=== PATIENT | female | born 1975 | race Caucasian/White ===

== ENCOUNTER 2016-09-08 09:55 | Emergency (ER) | payer MEDICAID ==
--- NOTE | 2016-09-08 09:57 | EDM.PDOC ---
[id number] 4d IN BY AMBULANCE Time Seen by Provider: 09/08/16 09:56 Source of Information: Reports: Patient, EMS, Old records, RN, RN notes reviewed History Limitations: Reports: No limitations - History of Present Illness INITIAL COMMENTS - FREE TEXT/NARRATIVE: Arrives by ambulance from home with c/o chest pain x2 days. Pt reports CP, but points to indicate the location of the epigastric abdomen. The pain is described as radiating up the midline chest with a burning and spasm sensation. Denies SOB, cough, N/V. Onset: unknown/unsure Duration: Day(s): (2) Location: Reports: chest, abdomen Quality: Reports: Burning Severity: severe Improves with: Reports: None Worsens with: Reports: None Context: Denies: Activity, Exercise, Lifting, Sick contact, Trauma Associated Symptoms: Reports: no other symptoms Mid-Sternal Chest Pain Score (Numeric/FACES): 9 - Related Data Allergies Allergy/AdvReac Type Severity Reaction Status Date / Time Penicillins Allergy Mild Rash Verified 09/13/16 22:12 acetaminophen Allergy Liver Verified 09/13/16 22:12 Problems amoxicillin trihydrate Allergy Itching Verified 09/13/16 22:12 [From Augmentin] aspirin Allergy Nausea Verified 09/13/16 22:12 azithromycin [From Zithromax] Allergy Nausea and Verified 09/13/16 22:12 Vomiting cefdinir [Cefdinir] Allergy Hives Verified 09/13/16 22:12 erythromycin base Allergy Swelling Verified 09/13/16 22:12 latex Allergy Blisters Verified 09/13/16 22:12 penicillin G procaine Allergy Hives Verified 09/13/16 22:12 Sulfa (Sulfonamide Allergy Nausea and Verified 09/13/16 22:12 Antibiotics) Vomiting valdecoxib [From Bextra] Allergy Stomach Verified 09/13/16 22:12 Upset Home Meds: Home Meds Albuterol [Proair HFA] 2 puff INH Q4HR PRN 09/29/13 [History] Gabapentin [Neurontin] 300 mg PO QID 12/28/15 [History] Melatonin 5 - 10 mg PO BEDTIME 02/19/16 [History] Docusate Sodium 100 mg PO 09/13/16 [History] traMADol [Ultram] 50 mg PO DAILY 09/13/16 [History] Past Medical History - Past Health History Medical/Surgical History: Denies Medical/Surgical History HEENT History: Reports: Otitis media, Sinusitis Cardiovascular History: Reports: Other (see below) Other Cardiovascular History: edema Respiratory History: Reports: Other (see below) Other Respiratory History: Environmental allergies Gastrointestinal History: Reports: Diverticulosis, Irritable bowel syndrome Genitourinary History: Reports: UTI, recurrent Other Genitourinary History: Innersticial cystitis [employer] History: Reports: Endometriosis, Fibroids, Polycystic Ovaries, Musculoskeletal History: Reports: Arthritis, Back pain, chronic, Fracture, Neck pain, chronic, Osteoarthritis Other Musculoskeletal History: Fx. wrist and feet. Neurological History: Reports: Concussion, Migraines, Seizure, Vertigo Psychiatric History: Reports: Anxiety, PTSD Endocrine/Metabolic History: Reports: Diabetes, gestational Hematologic History: Reports: Other (see below) Other Hematologic History: Clotting problem at time of surgery Dermatologic History: Reports: Eczema, Other (see below) Other Dermatologic History: MRSA. boils - Infectious Disease History Infectious Disease History: Reports: Chicken pox, MRSA - Past Surgical History Cardiovascular Surgical History: Reports: None Respiratory Surgical History: Reports: None GI Surgical History: Reports: Cholecystectomy, Colonoscopy, EGD Female Surgical History: Reports: Hysterectomy, Salpingo-oophorectomy Endocrine Surgical History: Reports: None Musculoskeletal Surgical History: Reports: Other (see below) Other Musculoskeletal Surgeries/Procedures:: cyst removed from right heel and top of foot, inside of left heel Social & Family History - Family History Family Medical History: Noncontributory - Tobacco Use Smoking Status *Q: Current Every Day Smoker Years of Tobacco use: 26 Packs/Tins Daily: 0.5 Used Tobacco, but Quit: No Month Tobacco Last Used: december Second Hand Smoke Exposure: Yes - Caffeine Use Caffeine Use: Reports: Coffee, Energy drinks, Soda, Tea - Alcohol Use Days Per Week of Alcohol Use: 1 Number of Drinks Per Day: 2 Total Drinks Per Week: 2 - Recreational Drug Use Recreational Drug Use: No Drug Use in Last 12 Months: No - Sexual History Sexual History: Reports: None. Denies: Sexually active - Living Situation & Occupation Living situation: Reports: with family Occupation: employed ED ROS GENERAL - Review of Systems Review Of Systems: ROS reveals no pertinent complaints other than HPI. ED EXAM, GENERAL - Physical Exam Exam: See Below Exam Limited By: No limitations General Appearance: alert, WD/WN, no apparent distress, anxious, obese Eye Exam: bilateral eye: normal inspection Ears: normal external exam, normal canal, hearing grossly normal, normal TMs Nose: normal inspection, normal mucosa, no blood Throat/Mouth: Normal inspection, Normal lips, Normal teeth, Normal gums, Normal oropharynx, Normal voice, No airway compromise Head: atraumatic, normocephalic Neck: normal inspection, supple, non-tender, full range of motion Respiratory/Chest: no respiratory distress, lungs clear, normal breath sounds, no accessory muscle use, chest non-tender Cardiovascular: normal peripheral pulses, regular rate, rhythm, no edema, no gallop, no JVD, no murmur, no rub GI/Abdominal: normal bowel sounds, soft, no distention, no abnormal bruit, tender (epigastric region). No: guarding, rigid, rebound (Female) Exam: Deferred Rectal (Female) Exam: Deferred Back Exam: normal inspection, full range of motion, NT Extremities: normal inspection, normal range of motion, non-tender, normal capillary refill, no pedal edema Neurological: alert, oriented, CN II-XII intact, normal cognition, normal gait, no motor/sensory deficits Psychiatric: anxious, tearful Skin Exam: Warm, Dry, Intact, Normal color, No rash, Other (hirsute face) EKG INTERPRETATION EKG Date: 09/08/16 Time: 11:06 Rhythm: other (sinus bradycardia) Rate (beats/min): 56 [place]: normal P-wave: present QRS: normal ST-T: normal QT: normal Comparison: NA - no prior EKG Course - Vital Signs Last Recorded V/S: Last Vital Signs Temp 36.8 C 09/08/16 11:25 Pulse 82 09/08/16 11:25 Resp 16 09/08/16 11:25 BP 113/64 09/08/16 11:25 Pulse Ox 99 09/08/16 11:25 - Orders/Labs/Meds Labs: Laboratory Tests 09/08/16 09/08/16 09/08/16 Range/Units 10:12 10:12 10:12 WBC 8.4 (5.0-10.0) 10^3/uL RBC 4.55 (4.2-5.4) 10^6/uL Hgb 12.7 (12.0-16.0) g/dL Hct 39.4 (37.0-47.0) % MCV 86.6 (80-100) fL MCH 27.9 (27.0-34.0) pg MCHC 32.2 L (33.0-35.0) g/dL Plt Count 225 (150-450) 10^3/uL Neut % (Auto) 58.8 (42.2-75.2) % Lymph % (Auto) 29.9 (20.5-50.1) % Kings % (Auto) 7.2 (2-8) % Eos % (Auto) 3.9 H (1.0-3.0) % Baso % (Auto) 0.2 (0.0-1.0) % D-Dimer, Quantitative < 100 (0-400) ng/mL Sodium 141 (135-145) mmol/L Potassium 4.2 (3.6-5.0) mmol/L Chloride 111 (101-111) mmol/L Carbon Dioxide 23.0 (21.0-31.0) mmol/L Anion Gap 11.2 BUN 15 (7-18) mg/dL Creatinine 0.8 (0.6-1.3) mg/dL Est Cr Clr Drug Dosing 89.26 mL/min Estimated GFR (MDRD) > 60 BUN/Creatinine Ratio 18.75 Glucose 95 (74-105) mg/dL Calcium 9.1 (8.4-10.2) mg/dl Total Bilirubin 0.2 (0.2-1.0) mg/dL AST 15 (10-42) IU/L ALT 12 (10-60) IU/L Alkaline Phosphatase 71 (42-121) IU/L Troponin I < 0.02 (0.00-0.02) ng/ml Total Protein 6.6 L (6.7-8.2) g/dl Albumin 3.7 (3.2-5.5) g/dl Globulin 2.9 Albumin/Globulin Ratio 1.28 Amylase 92 (28-100) U/L Lipase 35 (22-51) U/L Urine Color (YELLOW) Urine Appearance (CLEAR) Urine pH (5.0-9.0) Ur Specific [place] (1.005-1.030) Urine Protein (NEGATIVE) Urine Glucose (UA) (NEGATIVE) Urine Ketones (NEGATIVE) Urine Occult Blood (NEGATIVE) Urine Nitrite (NEGATIVE) Urine Bilirubin (NEGATIVE) Urine Urobilinogen (0.2-1.0) mg/dL Ur Leukocyte Esterase (NEGATIVE) Urine RBC /HPF Urine WBC (0-5/HPF) /HPF Ur Epithelial Cells /HPF Urine Bacteria (0-FEW/HPF) /HPF Urine HCG, Qual Urine Opiates Screen (NEGATIVE) Ur Oxycodone Screen (NEGATIVE) Urine Methadone Screen (NEGATIVE) Ur Barbiturates Screen (NEGATIVE) U Tricyclic Antidepress (NEGATIVE) Ur Phencyclidine Scrn (NEGATIVE) Ur Amphetamine Screen (NEGATIVE) U Methamphetamines Scrn (NEGATIVE) Urine MDMA Screen (NEGATIVE) U Benzodiazepines Scrn (NEGATIVE) Urine Cocaine Screen (NEGATIVE) U Marijuana (THC) Screen (NEGATIVE) 09/08/16 09/08/16 09/08/16 Range/Units 10:42 10:42 10:42 WBC (5.0-10.0) 10^3/uL RBC (4.2-5.4) 10^6/uL Hgb (12.0-16.0) g/dL Hct (37.0-47.0) % MCV (80-100) fL MCH (27.0-34.0) pg MCHC (33.0-35.0) g/dL Plt Count (150-450) 10^3/uL Neut % (Auto) (42.2-75.2) % Lymph % (Auto) (20.5-50.1) % Kings % (Auto) (2-8) % Eos % (Auto) (1.0-3.0) % Baso % (Auto) (0.0-1.0) % D-Dimer, Quantitative (0-400) ng/mL Sodium (135-145) mmol/L Potassium (3.6-5.0) mmol/L Chloride (101-111) mmol/L Carbon Dioxide (21.0-31.0) mmol/L Anion Gap BUN (7-18) mg/dL Creatinine (0.6-1.3) mg/dL Est Cr Clr Drug Dosing mL/min Estimated GFR (MDRD) BUN/Creatinine Ratio Glucose (74-105) mg/dL Calcium (8.4-10.2) mg/dl Total Bilirubin (0.2-1.0) mg/dL AST (10-42) IU/L ALT (10-60) IU/L Alkaline Phosphatase (42-121) IU/L Troponin I (0.00-0.02) ng/ml Total Protein (6.7-8.2) g/dl Albumin (3.2-5.5) g/dl Globulin Albumin/Globulin Ratio Amylase (28-100) U/L Lipase (22-51) U/L Urine Color Yellow (YELLOW) Urine Appearance Clear (CLEAR) Urine pH 7.0 (5.0-9.0) Ur Specific [place] 1.020 (1.005-1.030) Urine Protein 30 H (NEGATIVE) Urine Glucose (UA) Negative (NEGATIVE) Urine Ketones Negative (NEGATIVE) Urine Occult Blood Negative (NEGATIVE) Urine Nitrite Negative (NEGATIVE) Urine Bilirubin Negative (NEGATIVE) Urine Urobilinogen 0.2 (0.2-1.0) mg/dL Ur Leukocyte Esterase Negative (NEGATIVE) Urine RBC 0-5 /HPF Urine WBC 0-5 (0-5/HPF) /HPF Ur Epithelial Cells Few /HPF Urine Bacteria Few (0-FEW/HPF) /HPF Urine HCG, Qual Negative Urine Opiates Screen Negative (NEGATIVE) Ur Oxycodone Screen Negative (NEGATIVE) Urine Methadone Screen Negative (NEGATIVE) Ur Barbiturates Screen Negative (NEGATIVE) U Tricyclic Antidepress Negative (NEGATIVE) Ur Phencyclidine Scrn Negative (NEGATIVE) Ur Amphetamine Screen Negative (NEGATIVE) U Methamphetamines Scrn Negative (NEGATIVE) Urine MDMA Screen Negative (NEGATIVE) U Benzodiazepines Scrn Negative (NEGATIVE) Urine Cocaine Screen Negative (NEGATIVE) U Marijuana (THC) Screen Negative (NEGATIVE) Meds: Medications Discontinued Medications Generic Name Dose Route Start Last Admin Trade Name Freq PRN Reason Stop Dose Admin Hydromorphone HCl 1 mg 09/08/16 10:22 09/08/16 11:00 Dilaudid IVPUSH 09/08/16 10:23 1 mg ONETIME ONE Administration Sodium Chloride 1,000 mls @ 999 mls/hr 09/08/16 10:22 09/08/16 10:55 Normal Saline IV 09/08/16 11:22 999 mls/hr .BOLUS ONE Administration Ondansetron HCl 4 mg 09/08/16 10:22 09/08/16 10:57 Zofran IV 09/08/16 10:23 4 mg ONETIME ONE Administration Pantoprazole Sodium 80 mg 09/08/16 10:22 09/08/16 10:58 Protonix Iv IVPUSH 09/08/16 10:23 80 mg .BOLUS ONE Administration Sodium Chloride 10 ml 09/08/16 10:01 09/08/16 10:56 Saline Flush FLUSH 10 ml ASDIRECTED PRN Administration Keep Vein Open Departure - Departure Time of Disposition: 11:26 Disposition: Home, Self-Care 01 Condition: fair Clinical Impression: Esophageal spasm Abdominal pain Qualifiers: Abdominal location: epigastric Qualified Code(s): R10.13 - Epigastric pain Instructions: Esophageal Spasm, Peptic Ulcer, [id number], Food Choices for Peptic Ulcer Disease Referrals: Karen Healy MD [Primary Care Provider] - Forms: ED Department Discharge Additional Instructions: Rx: Zofran 4mg Rx: Omeprazole 20mg Rx: Carafate 1g Follow up in clinic with your doctor for recheck and referral to GI specialist.
[2016-09-08] MEDS ORDERED: Sodium Chloride 0.9% 10 ML Syringe FLUSH PRN (10:01)
[2016-09-08] MEDS ORDERED: Pantoprazole 40 MG Vial IVPUSH ONE (10:22)
[2016-09-08] MEDS ORDERED: Sodium Chloride 0.9% 1,000 ML IV ONE (10:22)
[2016-09-08] MEDS ORDERED: Ondansetron 4 MG/2 ML SDV IV ONE (10:22)
[2016-09-08] MEDS ORDERED: HYDROmorphone 1 MG/ML Syringe IVPUSH ONE (10:22)
[2016-09-08 11:08] LABS: CHLORIDE,CL 111 mmol/L (101-111); SODIUM,NA 141 mmol/L (135-145)
--- NOTE | 2016-09-08 11:08 | CR ---
CLINICAL HISTORY: 40-year-old with chest pain. INTERPRETATION: AP portable chest film (external cardiac sonographer leads) unremarkable and unchanged e xcept for technique when compared directly to 03 June 2016 exam. Normal cardiac silhouette without alveolar edema or dependent pleural effusion. No new lung mass, hilar lymphadenopathy or focal lobar pneumonia. No atelectasis/collapse. No pneumothorax. CONCLUSION: No acute new cardiopulmonary abnormality since 03 June 2016 exam.
[2016-09-08 11:16] VITALS: BP 113/64
--- NOTE | 2016-09-12 12:11 | EKG ---
09/08/2016 - LIS LANIER - TIME: 1106 hours. I reviewed the EKG and agree with the machine's reading. [facility] /[id number]
== END 2016-09-08 11:35 | disposition home or self-care (01) ==
LOC: DL.ED 09:55
DX: K22.4 Dyskinesia of esophagus (principal); M19.90 Unspecified osteoarthritis, unspecified site; F41.9 Anxiety disorder, unspecified; F17.210 Nicotine dependence, cigarettes, uncomplicated; Z88.0 Allergy status to penicillin; Z88.6 Allergy status to analgesic agent; Z88.1 Allergy status to other antibiotic agents; Z91.040 Latex allergy status; Z88.2 Allergy status to sulfonamides; Z79.899 Other long term (current) drug therapy; Z87.440 Personal history of urinary (tract) infections; Z90.49 Acquired absence of other specified parts of digestive tract; Z90.710 Acquired absence of both cervix and uterus
CPT/HCPCS: 36415; 71010; 80053; 80305; 81001; 81025; 82150; 83690; 84484; 85025; 85379; 93005; 96361; 96374; 96375; 99285; C9113; J1170; J2405; J7030; J7050

== ENCOUNTER 2016-09-13 21:36 | Emergency (ER) | payer MEDICAID ==
--- NOTE | 2016-09-13 22:14 | EDM.PDOC ---
ED HPI GENERAL MEDICAL PROBLEM - General Chief Complaint: Gastrointestinal Problem Stated Complaint: STOMACH PAIN,IMPACTED BOWEL Time Seen by Provider: 09/13/16 22:13 Source of Information: Reports: Patient History Limitations: Reports: No limitations - History of Present Illness INITIAL COMMENTS - FREE TEXT/NARRATIVE: 40 yo white Female c/o recurrent stool impaction, last BM 6 days ago. Pt. does take Tramadol for pain. Onset: gradual Onset Date: 09/07/16 Onset Time: 12:00 Duration: Day(s):, Recurring Location: Reports: abdomen Quality: Reports: Pressure Severity: moderate Abdomen Pain Score (Numeric/FACES): 7 - Related Data Allergies Allergy/AdvReac Type Severity Reaction Status Date / Time Penicillins Allergy Mild Rash Verified 09/13/16 22:12 acetaminophen Allergy Liver Verified 09/13/16 22:12 Problems amoxicillin trihydrate Allergy Itching Verified 09/13/16 22:12 [From Augmentin] aspirin Allergy Nausea Verified 09/13/16 22:12 azithromycin [From Zithromax] Allergy Nausea and Verified 09/13/16 22:12 Vomiting cefdinir [Cefdinir] Allergy Hives Verified 09/13/16 22:12 erythromycin base Allergy Swelling Verified 09/13/16 22:12 latex Allergy Blisters Verified 09/13/16 22:12 penicillin G procaine Allergy Hives Verified 09/13/16 22:12 Sulfa (Sulfonamide Allergy Nausea and Verified 09/13/16 22:12 Antibiotics) Vomiting valdecoxib [From Bextra] Allergy Stomach Verified 09/13/16 22:12 Upset Home Meds: Home Meds Albuterol [Proair HFA] 2 puff INH Q4HR PRN 09/29/13 [History] Gabapentin [Neurontin] 300 mg PO QID 12/28/15 [History] Melatonin 5 - 10 mg PO BEDTIME 02/19/16 [History] Docusate Sodium 100 mg PO 09/13/16 [History] traMADol [Ultram] 50 mg PO DAILY 09/13/16 [History] Past Medical History - Past Health History Medical/Surgical History: Denies Medical/Surgical History HEENT History: Reports: Otitis media, Sinusitis Cardiovascular History: Reports: Other (see below) Other Cardiovascular History: edema Respiratory History: Reports: Other (see below) Other Respiratory History: Environmental allergies Gastrointestinal History: Reports: Diverticulosis, Irritable bowel syndrome Genitourinary History: Reports: UTI, recurrent Other Genitourinary History: Innersticial cystitis [employer] History: Reports: Endometriosis, Fibroids, Polycystic Ovaries, Musculoskeletal History: Reports: Arthritis, Back pain, chronic, Fracture, Neck pain, chronic, Osteoarthritis Other Musculoskeletal History: Fx. wrist and feet. Neurological History: Reports: Concussion, Migraines, Seizure, Vertigo Psychiatric History: Reports: Anxiety, PTSD Endocrine/Metabolic History: Reports: Diabetes, gestational Hematologic History: Reports: Other (see below) Other Hematologic History: Clotting problem at time of surgery Dermatologic History: Reports: Eczema, Other (see below) Other Dermatologic History: MRSA. boils - Infectious Disease History Infectious Disease History: Reports: Chicken pox, MRSA - Past Surgical History Cardiovascular Surgical History: Reports: None Respiratory Surgical History: Reports: None GI Surgical History: Reports: Cholecystectomy, Colonoscopy, EGD Female Surgical History: Reports: Hysterectomy, Salpingo-oophorectomy Endocrine Surgical History: Reports: None Musculoskeletal Surgical History: Reports: Other (see below) Other Musculoskeletal Surgeries/Procedures:: cyst removed from right heel and top of foot, inside of left heel Social & Family History - Family History Family Medical History: Noncontributory - Tobacco Use Smoking Status *Q: Current Every Day Smoker Years of Tobacco use: 26 Packs/Tins Daily: 0.5 Used Tobacco, but Quit: No Month Tobacco Last Used: december Second Hand Smoke Exposure: Yes - Caffeine Use Caffeine Use: Reports: Coffee, Energy drinks, Soda, Tea - Alcohol Use Days Per Week of Alcohol Use: 1 Number of Drinks Per Day: 2 Total Drinks Per Week: 2 - Recreational Drug Use Recreational Drug Use: No Drug Use in Last 12 Months: No - Sexual History Sexual History: Reports: None. Denies: Sexually active - Living Situation & Occupation Living situation: Reports: with family Occupation: employed ED ROS GENERAL - Review of Systems Review Of Systems: See Below Constitutional: Reports: no symptoms HEENT: Reports: No symptoms Respiratory: Reports: No Symptoms Cardiovascular: Reports: No symptoms Endocrine: Reports: no symptoms GI/Abdominal: Reports: Constipation (last BM 6 days ago) : Reports: no symptoms Musculoskeletal: Reports: no symptoms Skin: Reports: no symptoms Neurological: Reports: No Symptoms Psychiatric: Reports: No symptoms Hematologic/Lymphatic: Reports: no symptoms Immunologic: Reports: no symptoms ED EXAM, GENERAL - Physical Exam Exam: See Below Exam Limited By: No limitations General Appearance: alert, no apparent distress, obese Eye Exam: bilateral eye: PERRL Ears: normal external exam Nose: normal inspection Throat/Mouth: Normal inspection Head: atraumatic Neck: normal inspection Respiratory/Chest: no respiratory distress, lungs clear Cardiovascular: normal peripheral pulses, regular rate, rhythm GI/Abdominal: soft, no organomegaly, abnormal bowel sounds: (decreased) Back Exam: normal inspection, full range of motion Extremities: normal inspection, normal range of motion Neurological: alert, oriented, CN II-XII intact, normal cognition Psychiatric: normal affect Skin Exam: Warm, No rash Lymphatic: no adenopathy Course - Vital Signs Last Recorded V/S: Last Vital Signs Temp 36.9 C 09/13/16 22:15 Pulse 90 09/13/16 22:15 Resp 18 09/13/16 22:15 BP 131/65 09/13/16 22:15 Pulse Ox 99 09/13/16 22:15 - Orders/Labs/Meds Orders: Active Orders 24 hr Category Date Time Status Abdomen 2V AP Flat Upright [CR] Urgent Exams 09/13/16 22:22 Ordered Departure - Departure Time of Disposition: 22:49 Disposition: Home, Self-Care 01 Condition: good Clinical Impression: Constipation Instructions: Constipation, Adult, [id number] Forms: ED Department Discharge Additional Instructions: Increase intake of Water Stop all Breads, Dairy and Meats ( All are Constipating) Tonight: 1) Give yourself a FLEETS Enema and hold for at least 15 mins. 2) Drink one glass of Magnesium Citrate and then 3 glasses of water ( If no BM after 30mins. go to # 3) 3) Take one-tablespoon of Fischer Oil and then 4 glasses of water 4) Try taking MOVANTIK which is indicated for Opioid induced constipation - Script given for # 25 ( take 1 each AM) F/U w/ your Doctor and possible Gastroenterology evaluation - My Orders Last 24 Hours: My Active Orders 09/13/16 22:22 Abdomen 2V AP Flat Upright [CR] Urgent - Assessment/Plan Last 24 Hours: My Active Orders 09/13/16 22:22 Abdomen 2V AP Flat Upright [CR] Urgent
[2016-09-13 22:25] VITALS: BP 131/65
== END 2016-09-13 23:05 | disposition home or self-care (01) ==
LOC: DL.ED 21:36
DX: K59.00 Constipation, unspecified (principal); M19.90 Unspecified osteoarthritis, unspecified site; F41.9 Anxiety disorder, unspecified; F17.210 Nicotine dependence, cigarettes, uncomplicated; Z88.1 Allergy status to other antibiotic agents; Z91.040 Latex allergy status; Z88.0 Allergy status to penicillin; Z88.2 Allergy status to sulfonamides; Z79.899 Other long term (current) drug therapy; Z88.6 Allergy status to analgesic agent; Z90.49 Acquired absence of other specified parts of digestive tract; Z90.710 Acquired absence of both cervix and uterus; Z87.440 Personal history of urinary (tract) infections
CPT/HCPCS: 74020; 99283

== ENCOUNTER 2016-11-15 21:03 | Emergency (ER) | payer MEDICAID ==
--- NOTE | 2016-11-15 21:20 | EDM.PDOC ---
ED HPI GENERAL MEDICAL PROBLEM - General Chief Complaint: Abdominal Pain Stated Complaint: DIVERTICULITIS, [id number] Time Seen by Provider: 11/15/16 21:05 Source of Information: Reports: Patient History Limitations: Reports: No Limitations - History of Present Illness INITIAL COMMENTS - FREE TEXT/NARRATIVE: This 41 yo female patient reports to the ED with diffuse abdominal pain and diarrhea for the past 2-3 days. The patient reports she has not been able to get into the clinic, but the patient did not attempt to call Dr. Odell (GI). Onset: Sudden Onset Date: 11/13/16 Duration: Constant Location: Reports: Abdomen Quality: Reports: Ache, Dull Severity: Moderate Improves with: Reports: None Worsens with: Reports: None Associated Symptoms: Reports: Other (diarrhea) Lower Abdomen Pain Score (Numeric/FACES): 8 - Related Data Allergies Allergy/AdvReac Type Severity Reaction Status Date / Time Penicillins Allergy Mild Rash Verified 11/15/16 21:30 acetaminophen Allergy Liver Verified 11/15/16 21:30 Problems amoxicillin trihydrate Allergy Itching Verified 11/15/16 21:30 [From Augmentin] aspirin Allergy Nausea Verified 11/15/16 21:30 azithromycin [From Zithromax] Allergy Nausea and Verified 11/15/16 21:30 Vomiting cefdinir [Cefdinir] Allergy Hives Verified 11/15/16 21:30 erythromycin base Allergy Swelling Verified 11/15/16 21:30 latex Allergy Blisters Verified 11/15/16 21:30 penicillin G procaine Allergy Hives Verified 11/15/16 21:30 Sulfa (Sulfonamide Allergy Nausea and Verified 11/15/16 21:30 Antibiotics) Vomiting valdecoxib [From Bextra] Allergy Stomach Verified 09/13/16 22:12 Upset Home Meds: Home Meds Albuterol [Proair HFA] 2 puff INH Q4HR PRN 09/29/13 [History] Gabapentin [Neurontin] 300 mg PO QID 12/28/15 [History] Melatonin 5 - 10 mg PO BEDTIME 02/19/16 [History] Docusate Sodium 100 mg PO 09/13/16 [History] traMADol [Ultram] 50 mg PO DAILY 09/13/16 [History] Past Medical History - Past Health History Medical/Surgical History: Denies Medical/Surgical History HEENT History: Reports: Otitis Media, Sinusitis Cardiovascular History: Reports: Other (See Below) Other Cardiovascular History: edema Respiratory History: Reports: Other (See Below) Other Respiratory History: Environmental allergies Gastrointestinal History: Reports: Diverticulosis, Irritable Bowel Syndrome Genitourinary History: Reports: UTI, Recurrent Other Genitourinary History: Innersticial cystitis 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 wrist and feet. Neurological History: Reports: Concussion, Migraines, Seizure, Vertigo Psychiatric History: Reports: Anxiety, PTSD Endocrine/Metabolic History: Reports: Diabetes, Gestational Hematologic History: Reports: Other (See Below) Other Hematologic History: Clotting problem at time of surgery Dermatologic History: Reports: Eczema, Other (See Below) Other Dermatologic History: MRSA. boils - Infectious Disease History Infectious Disease History: Reports: Chicken Pox, MRSA - Past Surgical History HEENT Surgical History: Reports: Oral Surgery Female Surgical History: Reports: Hysterectomy, Salpingo-Oophorectomy Musculoskeletal Surgical History: Reports: Other (See Below) Social & Family History - Family History Family Medical History: Noncontributory - Tobacco Use Smoking Status *Q: Current Every Day Smoker Years of Tobacco use: 26 Packs/Tins Daily: 0.5 Used Tobacco, but Quit: No Month Tobacco Last Used: december Second Hand Smoke Exposure: Yes - Caffeine Use Caffeine Use: Reports: Coffee, Energy Drinks, Soda, Tea - Alcohol Use Days Per Week of Alcohol Use: 1 Number of Drinks Per Day: 2 Total Drinks Per Week: 2 - Recreational Drug Use Recreational Drug Use: No Drug Use in Last 12 Months: No - Sexual History Sexual History: Reports: None. Denies: Sexually Active - Living Situation & Occupation Living situation: Reports: with Family Occupation: Employed ED ROS GENERAL - Review of Systems Review Of Systems: ROS reveals no pertinent complaints other than HPI. ED EXAM, GI/ABD - Physical Exam Exam: See Below Exam Limited By: No Limitations General Appearance: Alert, Mild Distress, Obese Eyes: Bilateral: Normal Appearance, EOMI Ears: Normal External Exam, Normal Canal, Hearing Grossly Normal, Normal TMs Nose: Normal Inspection, Normal Mucosa, No Blood Throat/Mouth: Normal Inspection, Normal Lips, Normal Teeth, Normal Gums, Normal Oropharynx, Normal Voice, No Airway Compromise Head: Atraumatic, Normocephalic Neck: Normal Inspection, Supple, Non-Tender, Full Range of Motion Respiratory/Chest: No Respiratory Distress, Lungs Clear, Normal Breath Sounds, No Accessory Muscle Use, Chest Non-Tender Cardiovascular: Normal Peripheral Pulses, Regular Rate, Rhythm, No Edema, No Gallop, No JVD, No Murmur, No Rub GI/Abdominal: Normal Bowel Sounds, Soft, No Organomegaly, No Distention, No Abnormal Bruit, No Mass, Pelvis Stable, Tenderness (diffuse), Other (morbid obesity) (Female) Exam: Deferred Rectal (Female) Exam: Deferred Back Exam: Normal Inspection, Full Range of Motion, NT Extremities: Normal Inspection, Normal Range of Motion, Non-Tender, Normal Capillary Refill, No Pedal Edema Neurological: Alert, Oriented, CN II-XII Intact, Normal Cognition, Normal Gait, Normal Reflexes, No Motor/Sensory Deficits Psychiatric: Normal Affect, Normal Mood Skin Exam: Warm, Dry, Intact, Normal Color, No Rash Lymphatic: No Adenopathy Course - Vital Signs Last Recorded V/S: Last Vital Signs Temp 36.1 C 11/15/16 21:06 Pulse 97 11/15/16 21:06 Resp 16 11/15/16 21:06 BP 123/72 11/15/16 21:06 Pulse Ox 99 11/15/16 21:06 - Orders/Labs/Meds Labs: Laboratory Tests 11/15/16 11/15/16 11/15/16 Range/Units 21:15 21:20 21:20 WBC 13.4 H (5.0-10.0) 10^3/uL RBC 4.98 (4.2-5.4) 10^6/uL Hgb 13.9 (12.0-16.0) g/dL Hct 42.6 (37.0-47.0) % MCV 85.5 (80-100) fL MCH 27.9 (27.0-34.0) pg MCHC 32.6 L (33.0-35.0) g/dL Plt Count 298 (150-450) 10^3/uL Neut % (Auto) 64.9 (42.2-75.2) % Lymph % (Auto) 25.8 (20.5-50.1) % [place] % (Auto) 7.1 (2-8) % Eos % (Auto) 2.1 (1.0-3.0) % Baso % (Auto) 0.1 (0.0-1.0) % Sodium 140 (135-145) mmol/L Potassium 3.6 (3.6-5.0) mmol/L Chloride 107 (101-111) mmol/L Carbon Dioxide 25.0 (21.0-31.0) mmol/L Anion Gap 11.6 BUN 19 H (7-18) mg/dL Creatinine 1.0 (0.6-1.3) mg/dL Est Cr Clr Drug Dosing 70.71 mL/min Estimated GFR (MDRD) > 60 BUN/Creatinine Ratio 19.00 Glucose 82 (74-105) mg/dL Lactic Acid (0.5-2.2) mmol/L Calcium 9.5 (8.4-10.2) mg/dl Total Bilirubin 0.3 (0.2-1.0) mg/dL AST 15 (10-42) IU/L ALT 16 (10-60) IU/L Alkaline Phosphatase 81 (42-121) IU/L Total Protein 7.1 (6.7-8.2) g/dl Albumin 4.0 (3.2-5.5) g/dl Globulin 3.1 Albumin/Globulin Ratio 1.29 Amylase 129 H (28-100) U/L Lipase 27 (22-51) U/L Urine Color Yellow (YELLOW) Urine Appearance Cloudy (CLEAR) Urine pH 7.0 (5.0-9.0) Ur Specific [place] 1.020 (1.005-1.030) Urine Protein Negative (NEGATIVE) Urine Glucose (UA) Negative (NEGATIVE) Urine Ketones Negative (NEGATIVE) Urine Occult Blood Negative (NEGATIVE) Urine Nitrite Negative (NEGATIVE) Urine Bilirubin Negative (NEGATIVE) Urine Urobilinogen 0.2 (0.2-1.0) mg/dL Ur Leukocyte Esterase Negative (NEGATIVE) Urine RBC 0-5 /HPF Urine WBC 0-5 (0-5/HPF) /HPF Ur Epithelial Cells Few /HPF Amorphous Sediment Many H (0/HPF) /HPF Urine Bacteria Moderate H (0-FEW/HPF) /HPF /17 Range/Units 21:20 WBC (5.0-10.0) 10^3/uL RBC (4.2-5.4) 10^6/uL Hgb (12.0-16.0) g/dL Hct (37.0-47.0) % MCV (80-100) fL MCH (27.0-34.0) pg MCHC (33.0-35.0) g/dL Plt Count (150-450) 10^3/uL Neut % (Auto) (42.2-75.2) % Lymph % (Auto) (20.5-50.1) % [place] % (Auto) (2-8) % Eos % (Auto) (1.0-3.0) % Baso % (Auto) (0.0-1.0) % Sodium (135-145) mmol/L Potassium (3.6-5.0) mmol/L Chloride (101-111) mmol/L Carbon Dioxide (21.0-31.0) mmol/L Anion Gap BUN (7-18) mg/dL Creatinine (0.6-1.3) mg/dL Est Cr Clr Drug Dosing mL/min Estimated GFR (MDRD) BUN/Creatinine Ratio Glucose (74-105) mg/dL Lactic Acid 1.1 (0.5-2.2) mmol/L Calcium (8.4-10.2) mg/dl Total Bilirubin (0.2-1.0) mg/dL AST (10-42) IU/L ALT (10-60) IU/L Alkaline Phosphatase (42-121) IU/L Total Protein (6.7-8.2) g/dl Albumin (3.2-5.5) g/dl Globulin Albumin/Globulin Ratio Amylase (28-100) U/L Lipase (22-51) U/L Urine Color (YELLOW) Urine Appearance (CLEAR) Urine pH (5.0-9.0) Ur Specific [place] (1.005-1.030) Urine Protein (NEGATIVE) Urine Glucose (UA) (NEGATIVE) Urine Ketones (NEGATIVE) Urine Occult Blood (NEGATIVE) Urine Nitrite (NEGATIVE) Urine Bilirubin (NEGATIVE) Urine Urobilinogen (0.2-1.0) mg/dL Ur Leukocyte Esterase (NEGATIVE) Urine RBC /HPF Urine WBC (0-5/HPF) /HPF Ur Epithelial Cells /HPF Amorphous Sediment (0/HPF) /HPF Urine Bacteria (0-FEW/HPF) /HPF Meds: Medications Discontinued Medications Generic Name Dose Route Start Last Admin Trade Name Van PRN Reason Stop Dose Admin Iopamidol 100 ml 11/15/16 22:05 11/15/16 22:17 Isovue-300 (61%) IVPUSH 11/15/16 22:06 100 ml ONETIME ONE Administration Ketorolac Tromethamine 30 mg 11/15/16 23:25 Toradol IVPUSH 11/15/16 23:26 ONETIME ONE Ondansetron HCl 4 mg 11/15/16 23:25 Zofran IV 11/15/16 23:26 ONETIME ONE Departure - Departure Time of Disposition: 23:30 Disposition: Home, Self-Care 01 Condition: fair Clinical Impression: Gastroenteritis - Discharge Information Instructions: Viral Gastroenteritis, Adult, [id number] Forms: ED Department Discharge Care Plan Goals: The patient was advised of the examination, lab and CT results during the visit. The patient was given an IV dose of Zofran and Toradol while in the ED. The patient was discharged with Zofran ODT (4 mg) #2 to take 1 by mouth every 6 hours and a script for Zofran ODT (4 mg) #20 to take 1 by mouth every 6 hours as needed for nausea and Toradol (10 mg) #20 to take 1 by mouth every 6 hours. The patient should stick to a clear liquid diet over the next 24 hours then slowly advance to a BRAT diet (bananas, rice, applesauce and toast). If the patient has any additional symptoms or concerns, the patient should follow-up with her primary care facility or return to the emergency department.
[2016-11-15 21:50] LABS: CHLORIDE,CL 107 mmol/L (101-111); SODIUM,NA 140 mmol/L (135-145)
[2016-11-15] MEDS ORDERED: Iopamidol 612 MG/ML 100 ML Bottle IVPUSH ONE (22:05)
[2016-11-15] MEDS ORDERED: Ondansetron 4 MG/2 ML SDV IV ONE (23:25)
[2016-11-15] MEDS ORDERED: Ketorolac 30 MG/ML SDV IVPUSH ONE (23:25)
[2016-11-15] MEDS ORDERED: Ondansetron 4 MG Tab.DIS PO ONE (23:35)
[2016-11-15] MEDS ORDERED: Ondansetron 4 MG Tab.DIS ONE (23:35)
[2016-11-15 23:48] VITALS: BP 130/86
== END 2016-11-15 23:44 | disposition home or self-care (01) ==
LOC: DL.ED 21:03
DX: K52.9 Noninfective gastroenteritis and colitis, unspecified (principal); F17.210 Nicotine dependence, cigarettes, uncomplicated; Z88.0 Allergy status to penicillin; Z88.1 Allergy status to other antibiotic agents; Z91.040 Latex allergy status; Z88.8 Allergy status to other drugs, medicaments and biological substances; Z79.899 Other long term (current) drug therapy
CPT/HCPCS: 36415; 74177; 80053; 81001; 82150; 83605; 83690; 85025; 96374; 96375; 99284; J1885; J2405; Q9967; A9270-GY

== ENCOUNTER 2016-12-30 10:04 | Emergency (ER) | payer MEDICAID ==
[2016-12-30 10:20] VITALS: BP 130/78
--- NOTE | 2016-12-30 10:48 | CR ---
Clinical history: 41-year-old female complaining of right ankle pain. Interpretation: Old healed fracture deformity (anatomic alignment) distal diaphysis of the right fib john paul. Tiny smoothly corticated osseous of radiology present on previous exam 08 July 2016 ([facility]). No sign of acute fracture or dislocation right ankle. Heel spurs identified incidentally at the insertion of the Achilles tendon and plantar aponeurosis o n the os calcis (reactive sclerosis talonavicular joint midfoot).
--- NOTE | 2016-12-30 11:03 | EDM.PDOC ---
ED HPI GENERAL MEDICAL PROBLEM - General Chief Complaint: Lower Extremity Injury/Pain Stated Complaint: [id number] RIGHT ANKLE POPPED Time Seen by Provider: 12/30/16 10:50 Source of Information: Reports: Patient History Limitations: Reports: No Limitations - History of Present Illness INITIAL COMMENTS - FREE TEXT/NARRATIVE: This 41 yo female patient reports to the ED with right ankle pain. The patient reports she was getting ready for work when she rolled her ankle and started to have increased pain in her right ankle. The patient has had numerous injuries to her right ankle in the past. 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(s) Right Ankle Pain Score (Numeric/FACES): 7 - Related Data Allergies Allergy/AdvReac Type Severity Reaction Status Date / Time Penicillins Allergy Mild Rash Verified 11/15/16 21:30 acetaminophen Allergy Liver Verified 11/15/16 21:30 Problems amoxicillin trihydrate Allergy Itching Verified 11/15/16 21:30 [From Augmentin] aspirin Allergy Nausea Verified 11/15/16 21:30 azithromycin [From Zithromax] Allergy Nausea and Verified 11/15/16 21:30 Vomiting cefdinir [Cefdinir] Allergy Hives Verified 11/15/16 21:30 erythromycin base Allergy Swelling Verified 11/15/16 21:30 latex Allergy Blisters Verified 11/15/16 21:30 penicillin G procaine Allergy Hives Verified 11/15/16 21:30 Sulfa (Sulfonamide Allergy Nausea and Verified 11/15/16 21:30 Antibiotics) Vomiting valdecoxib [From Bextra] Allergy Stomach Verified 09/13/16 22:12 Upset Home Meds: Home Meds Albuterol [Proair HFA] 2 puff INH Q4HR PRN 09/29/13 [History] Gabapentin [Neurontin] 300 mg PO QID 12/28/15 [History] Melatonin 5 - 10 mg PO BEDTIME 02/19/16 [History] oxyCODONE 5 mg PO QID 12/30/16 [History] Past Medical History - Past Health History Medical/Surgical History: Denies Medical/Surgical History HEENT History: Reports: Otitis Media, Sinusitis Cardiovascular History: Reports: Other (See Below) Other Cardiovascular History: edema Respiratory History: Reports: Other (See Below) Other Respiratory History: Environmental allergies Gastrointestinal History: Reports: Diverticulosis, Irritable Bowel Syndrome Genitourinary History: Reports: UTI, Recurrent Other Genitourinary History: Innersticial cystitis 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 wrist and feet. Neurological History: Reports: Concussion, Migraines, Seizure, Vertigo Psychiatric History: Reports: Anxiety, PTSD Endocrine/Metabolic History: Reports: Diabetes, Gestational Hematologic History: Reports: Other (See Below) Other Hematologic History: Clotting problem at time of surgery Dermatologic History: Reports: Eczema, Other (See Below) Other Dermatologic History: MRSA. boils - Infectious Disease History Infectious Disease History: Reports: Chicken Pox, MRSA - Past Surgical History HEENT Surgical History: Reports: Oral Surgery Female Surgical History: Reports: Hysterectomy, Salpingo-Oophorectomy Musculoskeletal Surgical History: Reports: Other (See Below) Social & Family History - Family History Family Medical History: Noncontributory - Tobacco Use Smoking Status *Q: Current Every Day Smoker Years of Tobacco use: 27 Packs/Tins Daily: 0.5 Used Tobacco, but Quit: No Month Tobacco Last Used: december Second Hand Smoke Exposure: Yes - Caffeine Use Caffeine Use: Reports: Coffee, Tea - Alcohol Use Days Per Week of Alcohol Use: 1 Number of Drinks Per Day: 2 Total Drinks Per Week: 2 - Recreational Drug Use Recreational Drug Use: No Drug Use in Last 12 Months: No - Sexual History Sexual History: Reports: None. Denies: Sexually Active - Living Situation & Occupation Living situation: Reports: with Family Occupation: Employed Review of Systems - Review of Systems Review Of Systems: ROS reveals no pertinent complaints other than HPI. ED EXAM, GENERAL - Physical Exam Exam: See Below Exam Limited By: No Limitations General Appearance: Alert, WD/WN, Moderate Distress, Obese Eye Exam: Bilateral Eye: EOMI, Normal Inspection, PERRL Ears: Normal External Exam, Normal Canal, Hearing Grossly Normal, Normal TMs Nose: Normal Inspection, Normal Mucosa, No Blood Throat/Mouth: Normal Inspection, Normal Lips, Normal Teeth, Normal Gums, Normal Oropharynx, Normal Voice, No Airway Compromise Head: Atraumatic, Normocephalic Neck: Normal Inspection, Supple, Non-Tender, Full Range of Motion Respiratory/Chest: No Respiratory Distress, Lungs Clear, Normal Breath Sounds, No Accessory Muscle Use, Chest Non-Tender Cardiovascular: Normal Peripheral Pulses, Regular Rate, Rhythm, No Edema, No Gallop, No JVD, No Murmur, No Rub GI/Abdominal: Normal Bowel Sounds, Soft, Non-Tender, No Organomegaly, No Distention, No Abnormal Bruit, No Mass (Female) Exam: Deferred Rectal (Female) Exam: Deferred Back Exam: Normal Inspection, Full Range of Motion, NT Extremities: Limited Range of Motion (right ankle) Neurological: Alert, Oriented, CN II-XII Intact, Normal Cognition, Normal Gait, Normal Reflexes, No Motor/Sensory Deficits Psychiatric: Normal Affect, Normal Mood Skin Exam: Warm, Dry, Intact, Normal Color, No Rash Lymphatic: No Adenopathy Course - Vital Signs Last Recorded V/S: Last Vital Signs Temp 36.6 C 12/30/16 10:19 Pulse 72 12/30/16 10:19 Resp 16 12/30/16 10:19 BP 130/78 12/30/16 10:19 Pulse Ox 99 12/30/16 10:19 Departure - Departure Time of Disposition: 11:00 Disposition: Home, Self-Care 01 Condition: Fair Clinical Impression: Right ankle strain Qualifiers: Encounter type: initial encounter Qualified Code(s): S96.911A - Strain of unspecified muscle and tendon at ankle and foot level, right foot, initial encounter - Discharge Information Instructions: Ankle Sprain, [id number] Forms: ED Department Discharge Care Plan Goals: The patient was advised of the examination and x-ray results during the visit. The patient was advised to continue to immobilize her right ankle in her walking boot. The patient should rest, ice and elevate her right foot over the next 24 hours. The patient should take her pain medications as prescribed. If the patient has any additional symptoms or concerns, the patient should follow- up with her primary care facility or return to the emergency department.
== END 2016-12-30 11:04 | disposition home or self-care (01) ==
LOC: DL.ED 10:04
DX: S96.911A Strain of unspecified muscle and tendon at ankle and foot level, right foot, initial encounter (principal); M19.90 Unspecified osteoarthritis, unspecified site; G43.909 Migraine, unspecified, not intractable, without status migrainosus; Z88.0 Allergy status to penicillin; Z88.8 Allergy status to other drugs, medicaments and biological substances; Z91.040 Latex allergy status; Z88.2 Allergy status to sulfonamides; Z87.440 Personal history of urinary (tract) infections; Z90.710 Acquired absence of both cervix and uterus; F17.210 Nicotine dependence, cigarettes, uncomplicated; X50.9XXA Other and unspecified overexertion or strenuous movements or postures, initial encounter
CPT/HCPCS: 73610-RT; 99283

== ENCOUNTER 2017-01-04 00:32 | Emergency (ER) | payer OTHER, MEDICAID ==
--- NOTE | 2017-01-04 00:41 | EDM.PDOC ---
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 Allergies Allergy/AdvReac Type Severity Reaction Status Date / Time Penicillins Allergy Mild Rash Verified 01/04/17 00:43 acetaminophen Allergy Liver Verified 01/04/17 00:43 Problems amoxicillin trihydrate Allergy Itching Verified 01/04/17 00:43 [From Augmentin] aspirin Allergy Nausea Verified 01/04/17 00:43 azithromycin [From Zithromax] Allergy Nausea and Verified 01/04/17 00:43 Vomiting cefdinir [Cefdinir] Allergy Hives Verified 01/04/17 00:43 erythromycin base Allergy Swelling Verified 01/04/17 00:43 latex Allergy Blisters Verified 01/04/17 00:43 penicillin G procaine Allergy Hives Verified 01/04/17 00:43 Sulfa (Sulfonamide Allergy Nausea and Verified 01/04/17 00:43 Antibiotics) Vomiting valdecoxib [From Bextra] Allergy Stomach Verified 01/04/17 00:43 Upset Home Meds: Home Meds Albuterol [Proair HFA] 2 puff INH Q4HR PRN 09/29/13 [History] Gabapentin [Neurontin] 300 mg PO QID 12/28/15 [History] Melatonin 5 - 10 mg PO BEDTIME 02/19/16 [History] oxyCODONE 5 mg PO QID 12/30/16 [History] Past Medical History - Past Health History Medical/Surgical History: Denies Medical/Surgical History HEENT History: Reports: Otitis Media, Sinusitis Cardiovascular History: Reports: Other (See Below) Other Cardiovascular History: edema Respiratory History: Reports: Other (See Below) Other Respiratory History: Environmental allergies Gastrointestinal History: Reports: Diverticulosis, Irritable Bowel Syndrome Genitourinary History: Reports: UTI, Recurrent Other Genitourinary History: Innersticial cystitis 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 wrist and feet. Neurological History: Reports: Concussion, Migraines, Seizure, Vertigo Psychiatric History: Reports: Anxiety, PTSD Endocrine/Metabolic History: Reports: Diabetes, Gestational Hematologic History: Reports: Other (See Below) Other Hematologic History: Clotting problem at time of surgery Dermatologic History: Reports: Eczema, Other (See Below) Other Dermatologic History: MRSA. boils - Infectious Disease History Infectious Disease History: Reports: Chicken Pox, MRSA - Past Surgical History HEENT Surgical History: Reports: Oral Surgery Female Surgical History: Reports: Hysterectomy, Salpingo-Oophorectomy Musculoskeletal Surgical History: Reports: Other (See Below) Social & Family History - Family History Family Medical History: Noncontributory - Tobacco Use Smoking Status *Q: Current Every Day Smoker Years of Tobacco use: 27 Packs/Tins Daily: 0.5 Used Tobacco, but Quit: No Month Tobacco Last Used: december Second Hand Smoke Exposure: Yes - Caffeine Use Caffeine Use: Reports: Coffee, Tea - Alcohol Use Days Per Week of Alcohol Use: 1 Number of Drinks Per Day: 2 Total Drinks Per Week: 2 - Recreational Drug Use Recreational Drug Use: No Drug Use in Last 12 Months: No - Sexual History Sexual History: Reports: None. Denies: Sexually Active - Living Situation & Occupation Living situation: Reports: with Family Occupation: Employed Review of Systems - Review of Systems Review Of Systems: ROS reveals no pertinent complaints other than HPI. ED EXAM, GENERAL - Physical Exam Exam: See Below Exam Limited By: No Limitations General Appearance: Alert, WD/WN, Mild Distress, Other (crying) Ears: Hearing Grossly Normal Throat/Mouth: Normal Voice, No Airway Compromise Head: Atraumatic Neck: Non-Tender, Full Range of Motion Respiratory/Chest: No Respiratory Distress Cardiovascular: Regular Rate, Rhythm GI/Abdominal: Soft, Non-Tender Extremities: Limited Range of Motion, Other (knees & ankle tender R/P, NV wnl, gait limited to pain) Neurological: Alert, Oriented, Normal Cognition, No Motor/Sensory Deficits Psychiatric: Tearful Skin Exam: Warm, Dry Lymphatic: No Adenopathy Course - Vital Signs Last Recorded V/S: Last Vital Signs Temp 36.8 C 01/04/17 00:42 Pulse 97 01/04/17 00:42 Resp 20 01/04/17 00:42 BP 157/65 H 01/04/17 00:42 Pulse Ox 99 01/04/17 00:42 - Orders/Labs/Meds Orders: Active Orders 24 hr Category Date Time Status Ankle 2V Lt [CR] Urgent Exams 01/04/17 00:38 Ordered Foot 2V Lt [CR] Urgent Exams 01/04/17 00:51 Taken Knee 1V or 2V Lt [CR] Urgent Exams 01/04/17 00:38 Ordered Knee 1V or 2V Rt [CR] Urgent Exams 01/04/17 00:38 Ordered Butorphanol [Stadol] Med 01/04/17 01:51 Once 2 mg IM ONETIME ONE Promethazine [Phenergan] Med 01/04/17 01:51 Once 25 mg IM ONETIME ONE Meds: Medications Discontinued Medications Generic Name Dose Route Start Last Admin Trade Name Freq PRN Reason Stop Dose Admin Oxycodone HCl 5 mg 01/04/17 00:44 01/04/17 01:09 Oxycodone PO 01/04/17 00:45 5 mg ONETIME ONE Administration - Re-Assessments/Exams Free Text/Narrative Re-Assessment/Exam: 01/04/17 01:54 results discussed with pt. Departure - Departure Time of Disposition: 01:54 Disposition: Home, Self-Care 01 Condition: Good Clinical Impression: Contusion of knee Ankle sprain Qualifiers: Encounter type: initial encounter Involved ligament of ankle: unspecified ligament Laterality: left Qualified Code(s): S93.402A - Sprain of unspecified ligament of left ankle, initial encounter - Discharge Information Instructions: Contusion, [id number] Forms: ED Department Discharge Additional Instructions: 1) elevate legs as much as possible 2) see family doctor Thursday for MRI SCAN rx given; flexeril 10mg tid prn spasm x 12 vicodin 5/325mg qid prn x 6 - My Orders Last 24 Hours: My Active Orders 01/04/17 00:38 Ankle 2V Lt [CR] Urgent Knee 1V or 2V Lt [CR] Urgent Knee 1V or 2V Rt [CR] Urgent 01/04/17 00:51 Foot 2V Lt [CR] Urgent 01/04/17 01:51 Butorphanol [Stadol] 2 mg IM ONETIME ONE Promethazine [Phenergan] 25 mg IM ONETIME ONE - Assessment/Plan Last 24 Hours: My Active Orders 01/04/17 00:38 Ankle 2V Lt [CR] Urgent Knee 1V or 2V Lt [CR] Urgent Knee 1V or 2V Rt [CR] Urgent 01/04/17 00:51 Foot 2V Lt [CR] Urgent 01/04/17 01:51 Butorphanol [Stadol] 2 mg IM ONETIME ONE Promethazine [Phenergan] 25 mg IM ONETIME ONE
[2017-01-04] MEDS ORDERED: oxyCODONE 5 MG Tab PO ONE (00:44)
[2017-01-04] MEDS ORDERED: Butorphanol 2 MG/ML SDV IM ONE (01:51)
[2017-01-04] MEDS ORDERED: Promethazine 25 MG/ML SDV IM ONE (01:51)
[2017-01-04 02:05] VITALS: BP 110/52
== END 2017-01-04 02:09 | disposition home or self-care (01) ==
LOC: DL.ED 00:32
DX: S93.402A Sprain of unspecified ligament of left ankle, initial encounter (principal); S80.02XA Contusion of left knee, initial encounter; S80.01XA Contusion of right knee, initial encounter; F41.9 Anxiety disorder, unspecified; M19.90 Unspecified osteoarthritis, unspecified site; F17.210 Nicotine dependence, cigarettes, uncomplicated; Z90.710 Acquired absence of both cervix and uterus; Z87.440 Personal history of urinary (tract) infections; Z90.721 Acquired absence of ovaries, unilateral; Z98.890 Other specified postprocedural states; Z88.0 Allergy status to penicillin; Z88.1 Allergy status to other antibiotic agents; Z88.2 Allergy status to sulfonamides; Z88.8 Allergy status to other drugs, medicaments and biological substances; Z91.040 Latex allergy status; W19.XXXA Unspecified fall, initial encounter
CPT/HCPCS: 73560; 73600; 73620; 96372; 99283; A9270; J0595; J2550

== ENCOUNTER 2017-02-05 14:57 | Emergency (ER) | payer MEDICAID, OTHER ==
[2017-02-05 15:58] VITALS: BP 103/60
[2017-02-05] MEDS ORDERED: Sodium Chloride 0.9% 10 ML Syringe FLUSH PRN (17:52)
[2017-02-05] MEDS ORDERED: Ondansetron 4 MG/2 ML SDV IV ONE (17:54)
[2017-02-05] MEDS ORDERED: Sodium Chloride 0.9% 1,000 ML IV ONE (17:54)
[2017-02-05] MEDS ORDERED: Ketorolac 30 MG/ML SDV IVPUSH ONE (17:54)
--- NOTE | 2017-02-05 18:00 | EDM.PDOC ---
<Reubenann Preethi - Last Filed: 02/05/17 17:55> ED HPI GENERAL MEDICAL PROBLEM - General Chief Complaint: Gastrointestinal Problem Stated Complaint: [id number] NAUSEA AND CAN TASTE BLOOD CRAMPING D Time Seen by Provider: 02/05/17 17:55 Source of Information: Reports: Patient History Limitations: Reports: No Limitations - History of Present Illness INITIAL COMMENTS - FREE TEXT/NARRATIVE: 41 yo female presents with abdominal pain and diarrhea. States that she has had the pain for 3 days and now has bright red blood with diarrhea. C/o nausea but denies vomiting. has hx of diverticulitis. Onset Date: 02/02/17 Duration: Getting Worse Location: Reports: Abdomen Quality: Reports: Ache Severity: Moderate Improves with: Reports: None Worsens with: Reports: None Associated Symptoms: Reports: Loss of Appetite, Nausea/Vomiting Lower Abdomen Pain Score (Numeric/FACES): 9 - Related Data Allergies Allergy/AdvReac Type Severity Reaction Status Date / Time Penicillins Allergy Mild Rash Verified 01/04/17 00:43 acetaminophen Allergy Liver Verified 01/04/17 00:43 Problems amoxicillin trihydrate Allergy Itching Verified 01/04/17 00:43 [From Augmentin] aspirin Allergy Nausea Verified 01/04/17 00:43 azithromycin [From Zithromax] Allergy Nausea and Verified 01/04/17 00:43 Vomiting cefdinir [Cefdinir] Allergy Hives Verified 01/04/17 00:43 erythromycin base Allergy Swelling Verified 01/04/17 00:43 latex Allergy Blisters Verified 01/04/17 00:43 penicillin G procaine Allergy Hives Verified 01/04/17 00:43 Sulfa (Sulfonamide Allergy Nausea and Verified 01/04/17 00:43 Antibiotics) Vomiting valdecoxib [From Bextra] Allergy Stomach Verified 01/04/17 00:43 Upset Home Meds: Home Meds Albuterol [Proair HFA] 2 puff INH Q4HR PRN 09/29/13 [History] Gabapentin [Neurontin] 300 mg PO QID 12/28/15 [History] Melatonin 5 - 10 mg PO BEDTIME 02/19/16 [History] oxyCODONE 5 mg PO QID PRN 12/30/16 [History] Past Medical History - Past Health History Medical/Surgical History: Denies Medical/Surgical History HEENT History: Reports: Otitis Media, Sinusitis Cardiovascular History: Reports: Other (See Below) Other Cardiovascular History: edema Respiratory History: Reports: Other (See Below) Other Respiratory History: Environmental allergies Gastrointestinal History: Reports: Diverticulosis, Irritable Bowel Syndrome Genitourinary History: Reports: UTI, Recurrent Other Genitourinary History: Innersticial cystitis [employer] 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 wrist and feet. Neurological History: Reports: Concussion, Migraines, Seizure, Vertigo Psychiatric History: Reports: Anxiety, PTSD Endocrine/Metabolic History: Reports: Diabetes, Gestational Hematologic History: Reports: Other (See Below) Other Hematologic History: Clotting problem at time of surgery Immunologic History: Reports: None Oncologic (Cancer) History: Reports: None Dermatologic History: Reports: Eczema, Other (See Below) Other Dermatologic History: MRSA. boils - Infectious Disease History Infectious Disease History: Reports: Chicken Pox, MRSA - Past Surgical History Head Surgeries/Procedures: Reports: None HEENT Surgical History: Reports: Oral Surgery Other HEENT Surgeries/Procedures: wisdom teeth removed GI Surgical History: Reports: Cholecystectomy Female Surgical History: Reports: Hysterectomy, Salpingo-Oophorectomy Musculoskeletal Surgical History: Reports: Other (See Below) Social & Family History - Family History Family Medical History: Noncontributory - Tobacco Use Smoking Status *Q: Current Every Day Smoker Years of Tobacco use: 27 Packs/Tins Daily: 0.5 Used Tobacco, but Quit: No Month Tobacco Last Used: december Second Hand Smoke Exposure: Yes - Caffeine Use Caffeine Use: Reports: Coffee, Energy Drinks, Soda, Tea - Alcohol Use Days Per Week of Alcohol Use: 1 Number of Drinks Per Day: 2 Total Drinks Per Week: 2 - Recreational Drug Use Recreational Drug Use: No Drug Use in Last 12 Months: No - Sexual History Sexual History: Reports: None. Denies: Sexually Active - Living Situation & Occupation Living situation: Reports: with Family Occupation: Employed ED ROS GENERAL - Review of Systems Review Of Systems: See Below GI/Abdominal: Reports: Abdominal Pain, Diarrhea, Decreased Appetite, Nausea ED EXAM, GI/ABD - Physical Exam Exam: See Below Exam Limited By: No Limitations General Appearance: Alert, WD/WN, No Apparent Distress Eyes: Bilateral: Normal Appearance, EOMI Ears: Normal External Exam, Normal Canal, Hearing Grossly Normal, Normal TMs Nose: Normal Inspection, Normal Mucosa, No Blood Throat/Mouth: Normal Inspection, Normal Lips, Normal Teeth, Normal Gums, Normal Oropharynx, Normal Voice, No Airway Compromise Head: Atraumatic, Normocephalic Neck: Normal Inspection, Supple, Non-Tender, Full Range of Motion Respiratory/Chest: No Respiratory Distress, Lungs Clear, Normal Breath Sounds, No Accessory Muscle Use, Chest Non-Tender Cardiovascular: Normal Peripheral Pulses, Regular Rate, Rhythm, No Edema, No Gallop, No JVD, No Murmur, No Rub GI/Abdominal Exam: Normal Bowel Sounds, Soft, No Organomegaly, No Distention, No Abnormal Bruit, No Mass, Pelvis Stable, Tender (diffusely) Extremities: Normal Inspection, Normal Range of Motion, Non-Tender, No Pedal Edema, Normal Capillary Refill, Other (Left leg in 3D boot) Neurological: Alert, Oriented, CN II-XII Intact, Normal Cognition, Normal Gait, No Motor/Sensory Deficits Skin Exam: Warm, Dry, Intact, Normal Color, No Rash Lymphatic: No Adenopathy Course - Vital Signs Last Recorded V/S: Last Vital Signs Temp 36.7 C 02/05/17 15:50 Pulse 67 02/05/17 15:50 Resp 18 02/05/17 15:50 BP 103/60 02/05/17 15:50 Pulse Ox 100 02/05/17 15:50 - Orders/Labs/Meds Orders: Active Orders 24 hr Category Date Time Status OCCULT BLOOD DIAGNOSTIC [OP] Stat Lab 02/05/17 17:52 Uncollected Sodium Chloride 0.9% [Saline Flush] Med 02/05/17 17:52 Active 10 ml FLUSH ASDIRECTED PRN Saline Lock Insert [OM.PC] Stat Oth 02/05/17 17:52 Ordered Medication Orders Sodium Chloride (Saline Flush) 10 ml FLUSH ASDIRECTED PRN PRN Reason: Keep Vein Open Last Admin: 02/05/17 20:11 Dose: 10 ml Labs: Laboratory Tests 02/05/17 02/05/17 02/05/17 Range/Units 18:05 18:05 18:58 WBC 11.8 H (5.0-10.0) 10^3/uL RBC 4.68 (4.2-5.4) 10^6/uL Hgb 13.1 (12.0-16.0) g/dL Hct 40.5 (37.0-47.0) % MCV 86.5 (80-100) fL MCH 28.0 (27.0-34.0) pg MCHC 32.3 L (33.0-35.0) g/dL Plt Count 258 (150-450) 10^3/uL Neut % (Auto) 59.5 (42.2-75.2) % Lymph % (Auto) 30.6 (20.5-50.1) % [place] % (Auto) 6.6 (2-8) % Eos % (Auto) 3.1 H (1.0-3.0) % Baso % (Auto) 0.2 (0.0-1.0) % Sodium 141 (135-145) mmol/L Potassium 4.1 (3.6-5.0) mmol/L Chloride 108 (101-111) mmol/L Carbon Dioxide 23.0 (21.0-31.0) mmol/L Anion Gap 14.1 BUN 19 H (7-18) mg/dL Creatinine 0.8 (0.6-1.3) mg/dL Est Cr Clr Drug Dosing 88.38 mL/min Estimated GFR (MDRD) > 60 Glucose 95 (74-105) mg/dL Calcium 9.6 (8.4-10.2) mg/dl Amylase 64 (28-100) U/L Lipase 24 (22-51) U/L HCG, Qual Negative Urine Color Yellow (YELLOW) Urine Appearance Slightly cloudy (CLEAR) Urine pH 7.0 (5.0-9.0) Ur Specific [place] 1.010 (1.005-1.030) Urine Protein Negative (NEGATIVE) Urine Glucose (UA) Negative (NEGATIVE) Urine Ketones Negative (NEGATIVE) Urine Occult Blood Negative (NEGATIVE) Urine Nitrite Negative (NEGATIVE) Urine Bilirubin Negative (NEGATIVE) Urine Urobilinogen 0.2 (0.2-1.0) mg/dL Ur Leukocyte Esterase Negative (NEGATIVE) Urine RBC 0-5 /HPF Urine WBC 0-5 (0-5/HPF) /HPF Ur Epithelial Cells Few /HPF Urine Bacteria Few (0-FEW/HPF) /HPF Urine Mucus Few H /LPF Meds: Medications Generic Name Dose Route Start Last Admin Trade Name Frelinda PRN Reason Stop Dose Admin Sodium Chloride 10 ml 02/05/17 17:52 02/05/17 20:11 Saline Flush FLUSH 10 ml ASDIRECTED PRN Administration Keep Vein Open Discontinued Medications Generic Name Dose Route Start Last Admin Trade Name Van PRN Reason Stop Dose Admin Butorphanol Tartrate 2 mg 02/05/17 19:45 02/05/17 20:10 Stadol IM 02/05/17 19:46 2 mg ONETIME ONE Administration Sodium Chloride 1,000 mls @ 999 mls/hr 02/05/17 17:54 02/05/17 19:02 Normal Saline IV 02/05/17 18:54 999 mls/hr .BOLUS ONE Administration Pantoprazole Sodium 80 mg/ 100 mls @ 200 mls/hr 02/05/17 19:44 Sodium Chloride IV 02/05/17 20:13 .BOLUS ONE Iopamidol 100 ml 02/05/17 18:13 02/05/17 19:01 Isovue-300 (61%) IVPUSH 02/05/17 18:14 100 ml ONETIME ONE Administration Ketorolac Tromethamine 30 mg 02/05/17 17:54 02/05/17 18:44 Toradol IVPUSH 02/05/17 17:55 30 mg ONETIME ONE Administration Ondansetron HCl 4 mg 02/05/17 17:54 02/05/17 18:44 Zofran IV 02/05/17 17:55 4 mg ONETIME ONE Administration Departure - Departure Disposition: Home, Self-Care 01 Clinical Impression: Abdominal pain - Discharge Information Instructions: Gastritis, Adult, [id number] Forms: ED Department Discharge Additional Instructions: 1) see clinic tomorrow for GASTROSCOPY & COLONOSCOPY 2) rest 3) recheck as needed rx given; zantac 150mg bid x 30 <Som Calderon - Last Filed: 02/05/17 20:17> Course - Re-Assessments/Exams Free Text/Narrative Re-Assessment/Exam: 02/05/17 19:45 results discussed with Pt. who states has h/o ulcers and had scopes done many years ago. Departure - Departure Time of Disposition: 20:15 Condition: Fair
[2017-02-05] MEDS ORDERED: Iopamidol 612 MG/ML 100 ML Bottle IVPUSH ONE (18:13)
[2017-02-05 18:40] LABS: CHLORIDE,CL 108 mmol/L (101-111); SODIUM,NA 141 mmol/L (135-145)
[2017-02-05] MEDS ORDERED: Pantoprazole 80 MG in Sodium Chloride 0.9% 100 ML IV ONE (19:44)
[2017-02-05] MEDS ORDERED: Butorphanol 2 MG/ML SDV IM ONE (19:45)
== END 2017-02-05 20:55 | disposition home or self-care (01) ==
LOC: DL.ED 14:57
DX: R10.30 Lower abdominal pain, unspecified (principal); R19.7 Diarrhea, unspecified; M19.90 Unspecified osteoarthritis, unspecified site; F41.9 Anxiety disorder, unspecified; F17.210 Nicotine dependence, cigarettes, uncomplicated; Z87.440 Personal history of urinary (tract) infections; Z90.49 Acquired absence of other specified parts of digestive tract; Z90.710 Acquired absence of both cervix and uterus; Z90.721 Acquired absence of ovaries, unilateral; Z98.890 Other specified postprocedural states; Z88.0 Allergy status to penicillin; Z88.1 Allergy status to other antibiotic agents; Z88.2 Allergy status to sulfonamides; Z91.040 Latex allergy status
CPT/HCPCS: 74177; 80048; 81001; 82150; 83690; 84703; 85025; 96365; 96367; 96372; 96375; 99284; C9113; J0595; J1885; J2405; J7030; J7050; Q9967; 36415

== ENCOUNTER 2017-04-13 20:52 | Emergency (ER) | payer MEDICAID, OTHER ==
[2017-04-13 21:36] VITALS: BP 130/73
--- NOTE | 2017-04-13 21:55 | EDM.PDOC ---
ED HPI GENERAL MEDICAL PROBLEM - General Chief Complaint: Lower Extremity Injury/Pain Stated Complaint: BROKEN TOE GOT SOMETHING DROPPED ON IT, [id number] Time Seen by Provider: 04/13/17 21:52 Source of Information: Reports: Patient History Limitations: Reports: No Limitations - History of Present Illness INITIAL COMMENTS - FREE TEXT/NARRATIVE: Patient comes emergency Department today with complaints of right fifth toe pain. Over the past few months the patient has broken her toe multiple times on the right foot fifth toe as she continues to stub it she relates. Tonight when she was at work some pans fell on her right foot and she has severe pain to her right foot. She is able to ambulate with some pain. Work had her come here because this injury happened while she was at work. She denies any pain in her ankle or any other area of her foot. She does take oxycodone and gabapentin for chronic pain syndrome. 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: Reports: Other (see below) Other 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: none Right 5-Little toe Pain Score (Numeric/FACES): 7 - Related Data Allergies Allergy/AdvReac Type Severity Reaction Status Date / Time Penicillins Allergy Mild Rash Verified 04/13/17 21:36 acetaminophen Allergy Liver Verified 04/13/17 21:36 Problems amoxicillin trihydrate Allergy Itching Verified 04/13/17 21:36 [From Augmentin] aspirin Allergy Nausea Verified 04/13/17 21:36 azithromycin [From Zithromax] Allergy Nausea and Verified 04/13/17 21:36 Vomiting cefdinir [Cefdinir] Allergy Hives Verified 04/13/17 21:36 erythromycin base Allergy Swelling Verified 04/13/17 21:36 latex Allergy Blisters Verified 04/13/17 21:36 penicillin G procaine Allergy Hives Verified 04/13/17 21:36 Sulfa (Sulfonamide Allergy Nausea and Verified 04/13/17 21:36 Antibiotics) Vomiting valdecoxib [From Bextra] Allergy Stomach Verified 04/13/17 21:36 Upset Home Meds: Home Meds Albuterol [Proair HFA] 2 puff INH Q4HR PRN 09/29/13 [History] Gabapentin [Neurontin] 300 mg PO ASDIRECTED 12/28/15 [History] Melatonin 5 - 10 mg PO BEDTIME 02/19/16 [History] oxyCODONE 5 mg PO QID PRN 12/30/16 [History] Sequel PRN 04/13/17 [History] Past Medical History - Past Health History Medical/Surgical History: Denies Medical/Surgical History HEENT History: Reports: Otitis Media, Sinusitis Cardiovascular History: Reports: Other (See Below) Other Cardiovascular History: edema Respiratory History: Reports: Other (See Below) Other Respiratory History: Environmental allergies Gastrointestinal History: Reports: Diverticulosis, Irritable Bowel Syndrome Genitourinary History: Reports: UTI, Recurrent Other Genitourinary History: Innersticial cystitis 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 wrist and feet. Neurological History: Reports: Concussion, Migraines, Seizure, Vertigo Psychiatric History: Reports: Anxiety, PTSD Endocrine/Metabolic History: Reports: Diabetes, Gestational Hematologic History: Reports: Other (See Below) Other Hematologic History: Clotting problem at time of surgery Immunologic History: Reports: None Oncologic (Cancer) History: Reports: None Dermatologic History: Reports: Eczema, Other (See Below) Other Dermatologic History: MRSA. boils - Infectious Disease History Infectious Disease History: Reports: Chicken Pox, MRSA - Past Surgical History Head Surgeries/Procedures: Reports: None HEENT Surgical History: Reports: Oral Surgery Other HEENT Surgeries/Procedures: wisdom teeth removed GI Surgical History: Reports: Cholecystectomy Female Surgical History: Reports: Hysterectomy, Salpingo-Oophorectomy Musculoskeletal Surgical History: Reports: Other (See Below) Social & Family History - Family History Family Medical History: Noncontributory - Tobacco Use Smoking Status *Q: Current Every Day Smoker Years of Tobacco use: 27 Packs/Tins Daily: 1 Used Tobacco, but Quit: No Month Tobacco Last Used: december Second Hand Smoke Exposure: Yes - Caffeine Use Caffeine Use: Reports: Coffee, Energy Drinks, Soda, Tea - Alcohol Use Days Per Week of Alcohol Use: 1 Number of Drinks Per Day: 2 Total Drinks Per Week: 2 - Recreational Drug Use Recreational Drug Use: No Drug Use in Last 12 Months: No - Sexual History Sexual History: Reports: None. Denies: Sexually Active - Living Situation & Occupation Living situation: Reports: with Family Occupation: Employed Review of Systems - Review of Systems Review Of Systems: ROS reveals no pertinent complaints other than HPI. ED EXAM, GENERAL - Physical Exam Exam: See Below Exam Limited By: No Limitations General Appearance: Alert, WD/WN, No Apparent Distress Extremities: Normal Inspection, Normal Range of Motion, Normal Capillary Refill , Other (Examination of the right lower extremity. There is no bruising swelling ecchymosis or erythema or induration to the entirety of the right foot. CMS is intact appropriately to the right foot. There is no bony deformity or crepitus. The patient has severe tenderness on the right fifth toe on palpation and even severe tenderness when I'm not touching her toe. There is no breaks in the skin. The right foot is atraumatic otherwise.). No: Joint Swelling Neurological: Alert, Oriented Psychiatric: Normal Affect Skin Exam: Warm, Dry, Intact, Normal Color Course - Vital Signs Last Recorded V/S: Last Vital Signs Temp 36.2 C 04/13/17 21:30 Pulse 67 04/13/17 21:30 Resp 18 04/13/17 21:30 BP 130/73 04/13/17 21:30 Pulse Ox 99 04/13/17 21:30 - Orders/Labs/Meds Orders: Active Orders 24 hr Category Date Time Status Foot 2V Rt [CR] Urgent Exams 04/13/17 21:51 Taken - Radiology Interpretation Free Text/Narrative:: Possible fracture of the distal phalanx of the right fifth toe versus hypoplastic joint space. 9 mm enchondroma at the dorsal side of the tarsal navicular - Re-Assessments/Exams Free Text/Narrative Re-Assessment/Exam: 04/13/17 22:42 With the patient's recent history this is a healing fracture likely. Nothing acute. We will treat her conservatively with her walking boot which he George has at home. I reviewed the x-ray as well as the plan of care with the patient she was comfortable with this plan. Departure - Departure Time of Disposition: 22:06 Disposition: Home, Self-Care 01 Clinical Impression: Toe pain, right - Discharge Information Instructions: Cryotherapy, [id number], Foot Contusion, [id number] Referrals: Karen Healy MD [Primary Care Provider] - Forms: ED Department Discharge Additional Instructions: Use your home medications of Gabapentin and Oxycodone. Otherwise Ibuprofen as needed for pain. Ice to the sore areas. Wear your walking boot that you have at home. Follow up with primary care in the next week if continued problems. - My Orders Last 24 Hours: My Active Orders 04/13/17 21:51 Foot 2V Rt [CR] Urgent - Assessment/Plan Last 24 Hours: My Active Orders 04/13/17 21:51 Foot 2V Rt [CR] Urgent Assessment:: Acute on chronic right 5th toe pain. Plan: Use your home medications of Gabapentin and Oxycodone. Otherwise Ibuprofen as needed for pain. Ice to the sore areas. Wear your walking boot that you have at home. Follow up with primary care in the next week if continued problems.
== END 2017-04-13 22:15 | disposition home or self-care (01) ==
LOC: DL.ED 20:52
DX: M79.674 Pain in right toe(s) (principal); F17.210 Nicotine dependence, cigarettes, uncomplicated; Z88.0 Allergy status to penicillin; Z88.2 Allergy status to sulfonamides; Z88.8 Allergy status to other drugs, medicaments and biological substances; Z88.6 Allergy status to analgesic agent; Z91.040 Latex allergy status
CPT/HCPCS: 73620-RT; 99283

== ENCOUNTER 2017-05-01 14:20 | Emergency (ER) | payer MEDICAID, OTHER ==
[2017-05-01 15:39] VITALS: BP 101/56
[2017-05-01] MEDS ORDERED: Ondansetron 4 MG Tab.DIS PO ONE (16:15)
[2017-05-01] MEDS ORDERED: Acetaminophen/HYDROcodone 325-10 MG Tab PO ONE (16:15)
[2017-05-01] MEDS ORDERED: Ketorolac 30 MG/ML SDV IM ONE (16:15)
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
== END 2017-05-01 17:08 | disposition home or self-care (01) ==
LOC: DL.ED 14:20
DX: M62.830 Muscle spasm of back (principal); M54.41 Lumbago with sciatica, right side; F17.210 Nicotine dependence, cigarettes, uncomplicated; Z88.1 Allergy status to other antibiotic agents; Z91.040 Latex allergy status; Z88.2 Allergy status to sulfonamides; Z88.0 Allergy status to penicillin; Z88.6 Allergy status to analgesic agent
CPT/HCPCS: 96372; 99283; A9270; J1885; J2360

== ENCOUNTER 2017-06-09 13:30 | Emergency (ER) | payer MEDICAID ==
[2017-06-09 14:31] VITALS: BP 119/68
[2017-06-09] MEDS ORDERED: Dexamethasone 4 MG/ML SDV IM ONE (15:54)
[2017-06-09] MEDS ORDERED: Acetaminophen/HYDROcodone 325-10 MG Tab PO ONE (15:56)
--- NOTE | 2017-06-09 16:43 | EDM.PDOC ---
Scribed by Linda Strong 06/09/17 2802 for Paulo Monae MD ED HPI GENERAL MEDICAL PROBLEM - General Chief Complaint: Back Pain or Injury Stated Complaint: BACK WENT OUT Time Seen by Provider: 06/09/17 15:00 Source of Information: Reports: Patient, RN, RN Notes Reviewed History Limitations: Reports: No Limitations - History of Present Illness INITIAL COMMENTS - FREE TEXT/NARRATIVE: Patient presents to ER with flare up of chronic low back pain. She went to stand up this morning and she experienced severe pain. She has paresthesia and numbness down her legs left worse than right. She has had no loss of bowel or bladder control. Onset: Today Location: Reports: Back Quality: Reports: Ache Severity: Severe Improves with: Reports: None Worsens with: Reports: None Associated Symptoms: Reports: No Other Symptoms Back Pain Score (Numeric/FACES): 10 - Related Data Allergies Allergy/AdvReac Type Severity Reaction Status Date / Time Penicillins Allergy Mild Rash Verified 06/09/17 14:17 acetaminophen Allergy Liver Verified 06/09/17 14:17 Problems amoxicillin trihydrate Allergy Itching Verified 06/09/17 14:17 [From Augmentin] aspirin Allergy Nausea Verified 06/09/17 14:17 azithromycin [From Zithromax] Allergy Nausea and Verified 06/09/17 14:17 Vomiting cefdinir [Cefdinir] Allergy Hives Verified 06/09/17 14:17 erythromycin base Allergy Swelling Verified 06/09/17 14:17 latex Allergy Blisters Verified 06/09/17 14:17 penicillin G procaine Allergy Hives Verified 06/09/17 14:17 Sulfa (Sulfonamide Allergy Nausea and Verified 06/09/17 14:17 Antibiotics) Vomiting valdecoxib [From Bextra] Allergy Stomach Verified 05/01/17 15:34 Upset Home Meds: Home Meds Albuterol [Proair HFA] 2 puff INH Q4HR PRN 09/29/13 [History] Gabapentin [Neurontin] 300 mg PO ASDIRECTED 12/28/15 [History] Melatonin 5 - 10 mg PO BEDTIME 02/19/16 [History] Past Medical History - Past Health History Medical/Surgical History: Denies Medical/Surgical History HEENT History: Reports: Otitis Media, Sinusitis Cardiovascular History: Reports: Other (See Below) Other Cardiovascular History: edema Respiratory History: Reports: Other (See Below) Other Respiratory History: Environmental allergies Gastrointestinal History: Reports: Diverticulosis, Irritable Bowel Syndrome Genitourinary History: Reports: UTI, Recurrent Other Genitourinary History: Innersticial cystitis [employer] History: Reports: Endometriosis, Fibroids, Polycystic Ovaries, Musculoskeletal History: Reports: Arthritis, Back Pain, Chronic, Fracture, Neck Pain, Chronic, Osteoarthritis Other Musculoskeletal History: Fx. wrist and feet. Neurological History: Reports: Concussion, Migraines, Seizure, Vertigo Psychiatric History: Reports: Anxiety, PTSD Endocrine/Metabolic History: Reports: Diabetes, Gestational, Obesity/BMI 30+ Hematologic History: Reports: Other (See Below) Other Hematologic History: Clotting problem at time of surgery Immunologic History: Reports: None Oncologic (Cancer) History: Reports: None Dermatologic History: Reports: Eczema, Other (See Below) Other Dermatologic History: MRSA. boils - Infectious Disease History Infectious Disease History: Reports: Chicken Pox, MRSA - Past Surgical History Head Surgeries/Procedures: Reports: None HEENT Surgical History: Reports: Oral Surgery Other HEENT Surgeries/Procedures: wisdom teeth removed GI Surgical History: Reports: Cholecystectomy Female Surgical History: Reports: Hysterectomy, Salpingo-Oophorectomy Musculoskeletal Surgical History: Reports: Other (See Below) Other Musculoskeletal Surgeries/Procedures:: left knee cleaned out Social & Family History - Family History Family Medical History: Noncontributory - Tobacco Use Smoking Status *Q: Current Every Day Smoker Years of Tobacco use: 27 Packs/Tins Daily: 1 Used Tobacco, but Quit: No Month Tobacco Last Used: december Second Hand Smoke Exposure: Yes - Caffeine Use Caffeine Use: Reports: Coffee - Alcohol Use Days Per Week of Alcohol Use: 1 Number of Drinks Per Day: 2 Total Drinks Per Week: 2 - Recreational Drug Use Recreational Drug Use: No Drug Use in Last 12 Months: No - Sexual History Sexual History: Reports: None. Denies: Sexually Active - Living Situation & Occupation Living situation: Reports: with Family Occupation: Employed ED ROS GENERAL - Review of Systems Review Of Systems: ROS reveals no pertinent complaints other than HPI. ED EXAM,LOWER BACK PAIN/INJURY - Physical Exam Exam: See Below Exam Limited By: No Limitations General Appearance: Alert, WD/WN, No Apparent Distress Neck: Normal Inspection, Supple, Non-Tender, Full Range of Motion Respiratory/Chest: No Respiratory Distress, Lungs Clear, Normal Breath Sounds, No Accessory Muscle Use, Chest Non-Tender Cardiovascular: Normal Peripheral Pulses, Regular Rate, Rhythm, No Edema, No Gallop, No JVD, No Murmur, No Rub GI/Abdominal: Normal Bowel Sounds, Soft, Non-Tender, No Organomegaly, No Distention, No Abnormal Bruit, No Mass (Female) Exam: Deferred Rectal (Female) Exam: Deferred Back Exam: Other (lumbar region has decreased range of motion due to pain with paraspinal muscle spasms and paraspinal tenderness. No vertebral tenderness.) Extremities: Normal Inspection, Normal Range of Motion, Non-Tender, No Pedal Edema, Normal Capillary Refill Neurological: Alert, Normal Mood/Affect, Normal Dorsiflexion, CN II-XII Intact, Normal Plantar Flexion, Normal Gait, Normal Reflexes, No Motor/Sensory Deficits , Oriented x 3 Psychiatric: Normal Affect, Normal Mood Skin Exam: Warm, Dry, Intact, Normal Color, No Rash Course - Vital Signs Last Recorded V/S: Last Vital Signs Temp 36.5 C 06/09/17 14:24 Pulse 75 06/09/17 14:24 Resp 14 06/09/17 14:24 BP 119/68 06/09/17 14:24 Pulse Ox 99 06/09/17 14:24 - Orders/Labs/Meds Meds: Medications Discontinued Medications Generic Name Dose Route Start Last Admin Trade Name Van PRN Reason Stop Dose Admin Hydrocodone Bitart/Acetaminophen 1 tab 06/09/17 15:56 06/09/17 16:03 Enigma 325-10 Mg PO 06/09/17 15:57 1 tab ONETIME ONE Administration Dexamethasone 10 mg 06/09/17 15:54 06/09/17 16:04 Dexamethasone IM 06/09/17 15:55 10 mg ONETIME ONE Administration Orphenadrine Citrate 60 mg 06/09/17 15:55 06/09/17 16:04 Norflex IM 06/09/17 15:56 60 mg ONETIME ONE Administration Departure - Departure Time of Disposition: 16:38 Disposition: Home, Self-Care 01 Condition: Good Clinical Impression: Acute exacerbation of chronic low back pain, Lumbar radiculopathy - Discharge Information Instructions: Sciatica, [id number], Back Pain, Adult, [id number] Referrals: Karen Healy MD [Primary Care Provider] - Forms: ED Department Discharge Additional Instructions: Rest and light activity as tolerated. RX: Cyclobenzaprine 10mg. *Do not drive while under the influence of this medication. RX: Decadron 4mg. Follow up with your primary care doctor if not improving in the next 1 to 2 days. I have read and agree with the documentation that has been completed regarding this visit. By signing this record, I attest that the documentation was completed in my physical presence and is an accurate record of the encounter.
== END 2017-06-09 16:55 | disposition home or self-care (01) ==
LOC: DL.ED 13:30
DX: M54.16 Radiculopathy, lumbar region (principal); G89.29 Other chronic pain; F17.210 Nicotine dependence, cigarettes, uncomplicated; Z88.0 Allergy status to penicillin; Z88.1 Allergy status to other antibiotic agents; Z88.2 Allergy status to sulfonamides; Z88.8 Allergy status to other drugs, medicaments and biological substances; Z88.6 Allergy status to analgesic agent; Z91.040 Latex allergy status
CPT/HCPCS: 96372; 99282; A9270; J1100; J2360

== ENCOUNTER 2017-07-10 17:22 | Emergency (ER) | payer MEDICAID, OTHER ==
[2017-07-10 17:40] VITALS: BP 117/62
--- NOTE | 2017-07-10 18:49 | EDM.PDOC ---
Scribed by Linda Strong 07/10/17 [id number] for Paulo Monae MD <Paulo Monae - Last Filed: 07/10/17 18:49> ED HPI GENERAL MEDICAL PROBLEM - General Chief Complaint: Gastrointestinal Problem Stated Complaint: PAIN IN LOWER RT SIDE OF BACK ADVISED TO COME ZORAIDA Time Seen by Provider: 07/10/17 17:54 Source of Information: Reports: Patient, RN, RN Notes Reviewed History Limitations: Reports: No Limitations Right Flank Pain Score (Numeric/FACES): 6 - Related Data Allergies Allergy/AdvReac Type Severity Reaction Status Date / Time Penicillins Allergy Mild Rash Verified 06/09/17 14:17 acetaminophen Allergy Liver Verified 06/09/17 14:17 Problems amoxicillin trihydrate Allergy Itching Verified 06/09/17 14:17 [From Augmentin] aspirin Allergy Nausea Verified 06/09/17 14:17 azithromycin [From Zithromax] Allergy Nausea and Verified 06/09/17 14:17 Vomiting cefdinir [Cefdinir] Allergy Hives Verified 06/09/17 14:17 erythromycin base Allergy Swelling Verified 06/09/17 14:17 latex Allergy Blisters Verified 06/09/17 14:17 penicillin G procaine Allergy Hives Verified 06/09/17 14:17 Sulfa (Sulfonamide Allergy Nausea and Verified 06/09/17 14:17 Antibiotics) Vomiting valdecoxib [From Bextra] Allergy Stomach Verified 05/01/17 15:34 Upset Home Meds: Home Meds Albuterol [Proair HFA] 2 puff INH Q4HR PRN 09/29/13 [History] Gabapentin [Neurontin] 300 mg PO ASDIRECTED 12/28/15 [History] Melatonin 20 mg PO BEDTIME 02/19/16 [History] Past Medical History - Past Health History Medical/Surgical History: Denies Medical/Surgical History HEENT History: Reports: Otitis Media, Sinusitis Cardiovascular History: Reports: Other (See Below) Other Cardiovascular History: edema Respiratory History: Reports: Other (See Below) Other Respiratory History: Environmental allergies Gastrointestinal History: Reports: Diverticulosis, Irritable Bowel Syndrome, Other (See Below) Other Gastrointestinal History: "liver functions off" Genitourinary History: Reports: UTI, Recurrent, Other (See Below) Other Genitourinary History: Innersticial cystitis. 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 wrist and feet. Neurological History: Reports: Concussion, Migraines, Seizure, Vertigo Psychiatric History: Reports: Anxiety, PTSD Endocrine/Metabolic History: Reports: Diabetes, Gestational, Obesity/BMI 30+ Hematologic History: Reports: Other (See Below) Other Hematologic History: Clotting problem at time of surgery Immunologic History: Reports: None Oncologic (Cancer) History: Reports: None Dermatologic History: Reports: Eczema, Other (See Below) Other Dermatologic History: MRSA. boils - Infectious Disease History Infectious Disease History: Reports: Chicken Pox, MRSA - Past Surgical History Head Surgeries/Procedures: Reports: None HEENT Surgical History: Reports: Oral Surgery Other HEENT Surgeries/Procedures: wisdom teeth removed GI Surgical History: Reports: Cholecystectomy Female Surgical History: Reports: Hysterectomy, Salpingo-Oophorectomy Musculoskeletal Surgical History: Reports: Other (See Below) Other Musculoskeletal Surgeries/Procedures:: left knee cleaned out Social & Family History - Family History Family Medical History: Noncontributory - Tobacco Use Smoking Status *Q: Current Every Day Smoker Years of Tobacco use: 27 Packs/Tins Daily: 1 Used Tobacco, but Quit: No Month Tobacco Last Used: december Second Hand Smoke Exposure: Yes - Caffeine Use Caffeine Use: Reports: Coffee - Alcohol Use Days Per Week of Alcohol Use: 1 Number of Drinks Per Day: 2 Total Drinks Per Week: 2 - Recreational Drug Use Recreational Drug Use: No Drug Use in Last 12 Months: No - Sexual History Sexual History: Reports: None. Denies: Sexually Active - Living Situation & Occupation Living situation: Reports: with Family Occupation: Employed Course - Vital Signs Last Recorded V/S: Last Vital Signs Temp 37.4 C 07/10/17 17:35 Pulse 86 07/10/17 17:35 Resp 20 07/10/17 17:35 BP 117/62 07/10/17 17:35 Pulse Ox 98 07/10/17 17:35 - Orders/Labs/Meds Orders: Active Orders 24 hr Category Date Time Status Orphenadrine [Norflex] Med 07/10/17 20:30 Active 60 mg IM Q12H Medication Orders Orphenadrine Citrate (Norflex) 60 mg IM Q12H ARNOLD Last Admin: 07/10/17 20:30 Dose: 60 mg Labs: Laboratory Tests 07/10/17 07/10/17 07/10/17 Range/Units 17:44 17:44 19:26 WBC 8.1 (5.0-10.0) 10^3/uL RBC 4.28 (4.2-5.4) 10^6/uL Hgb 12.1 (12.0-16.0) g/dL Hct 37.5 (37.0-47.0) % MCV 87.6 (80-100) fL MCH 28.3 (27.0-34.0) pg MCHC 32.3 L (33.0-35.0) g/dL Plt Count 263 (150-450) 10^3/uL Neut % (Auto) 55.2 (42.2-75.2) % Lymph % (Auto) 33.7 (20.5-50.1) % Winkler % (Auto) 7.0 (2-8) % Eos % (Auto) 3.9 H (1.0-3.0) % Baso % (Auto) 0.2 (0.0-1.0) % Sodium (135-145) mmol/L Potassium (3.6-5.0) mmol/L Chloride (101-111) mmol/L Carbon Dioxide (21.0-31.0) mmol/L Anion Gap BUN (7-18) mg/dL Creatinine (0.6-1.3) mg/dL Est Cr Clr Drug Dosing mL/min Estimated GFR (MDRD) BUN/Creatinine Ratio Glucose (74-105) mg/dL Calcium (8.4-10.2) mg/dl Magnesium (1.8-2.5) mg/dL Total Bilirubin (0.2-1.0) mg/dL AST (10-42) IU/L ALT (10-60) IU/L Alkaline Phosphatase (42-121) IU/L Total Protein (6.7-8.2) g/dl Albumin (3.2-5.5) g/dl Globulin Albumin/Globulin Ratio Amylase (28-100) U/L Lipase (22-51) U/L Urine Color Yellow (YELLOW) Urine Appearance Clear (CLEAR) Urine pH 7.0 (5.0-9.0) Ur Specific Chandler 1.025 (1.005-1.030) Urine Protein Negative (NEGATIVE) Urine Glucose (UA) Negative (NEGATIVE) Urine Ketones Negative (NEGATIVE) Urine Occult Blood Negative (NEGATIVE) Urine Nitrite Negative (NEGATIVE) Urine Bilirubin Negative (NEGATIVE) Urine Urobilinogen 0.2 (0.2-1.0) mg/dL Ur Leukocyte Esterase Negative (NEGATIVE) Urine RBC 0-5 /HPF Urine WBC 0-5 (0-5/HPF) /HPF Ur Epithelial Cells Moderate H /HPF Urine Bacteria Few (0-FEW/HPF) /HPF Urine Mucus Few H /LPF Urine Opiates Screen Negative (NEGATIVE) Ur Oxycodone Screen Negative (NEGATIVE) Urine Methadone Screen Negative (NEGATIVE) Ur Barbiturates Screen Negative (NEGATIVE) U Tricyclic Antidepress Negative (NEGATIVE) Ur Phencyclidine Scrn Negative (NEGATIVE) Ur Amphetamine Screen Negative (NEGATIVE) U Methamphetamines Scrn Negative (NEGATIVE) Urine MDMA Screen Negative (NEGATIVE) U Benzodiazepines Scrn Negative (NEGATIVE) Urine Cocaine Screen Negative (NEGATIVE) U Marijuana (THC) Screen Negative (NEGATIVE) 07/10/17 Range/Units 19:26 WBC (5.0-10.0) 10^3/uL RBC (4.2-5.4) 10^6/uL Hgb (12.0-16.0) g/dL Hct (37.0-47.0) % MCV (80-100) fL MCH (27.0-34.0) pg MCHC (33.0-35.0) g/dL Plt Count (150-450) 10^3/uL Neut % (Auto) (42.2-75.2) % Lymph % (Auto) (20.5-50.1) % Winkler % (Auto) (2-8) % Eos % (Auto) (1.0-3.0) % Baso % (Auto) (0.0-1.0) % Sodium 139 (135-145) mmol/L Potassium 3.7 (3.6-5.0) mmol/L Chloride 111 (101-111) mmol/L Carbon Dioxide 22.0 (21.0-31.0) mmol/L Anion Gap 9.7 BUN 17 (7-18) mg/dL Creatinine 0.7 (0.6-1.3) mg/dL Est Cr Clr Drug Dosing 97.09 mL/min Estimated GFR (MDRD) > 60 BUN/Creatinine Ratio 24.28 Glucose 101 (74-105) mg/dL Calcium 8.6 (8.4-10.2) mg/dl Magnesium 1.9 (1.8-2.5) mg/dL Total Bilirubin 0.2 (0.2-1.0) mg/dL AST 72 H (10-42) IU/L ALT 123 H (10-60) IU/L Alkaline Phosphatase 80 (42-121) IU/L Total Protein 6.3 L (6.7-8.2) g/dl Albumin 3.3 (3.2-5.5) g/dl Globulin 3.0 Albumin/Globulin Ratio 1.10 Amylase 96 (28-100) U/L Lipase 40 (22-51) U/L Urine Color (YELLOW) Urine Appearance (CLEAR) Urine pH (5.0-9.0) Ur Specific Chandler (1.005-1.030) Urine Protein (NEGATIVE) Urine Glucose (UA) (NEGATIVE) Urine Ketones (NEGATIVE) Urine Occult Blood (NEGATIVE) Urine Nitrite (NEGATIVE) Urine Bilirubin (NEGATIVE) Urine Urobilinogen (0.2-1.0) mg/dL Ur Leukocyte Esterase (NEGATIVE) Urine RBC /HPF Urine WBC (0-5/HPF) /HPF Ur Epithelial Cells /HPF Urine Bacteria (0-FEW/HPF) /HPF Urine Mucus /LPF Urine Opiates Screen (NEGATIVE) Ur Oxycodone Screen (NEGATIVE) Urine Methadone Screen (NEGATIVE) Ur Barbiturates Screen (NEGATIVE) U Tricyclic Antidepress (NEGATIVE) Ur Phencyclidine Scrn (NEGATIVE) Ur Amphetamine Screen (NEGATIVE) U Methamphetamines Scrn (NEGATIVE) Urine MDMA Screen (NEGATIVE) U Benzodiazepines Scrn (NEGATIVE) Urine Cocaine Screen (NEGATIVE) U Marijuana (THC) Screen (NEGATIVE) Meds: Medications Generic Name Dose Route Start Last Admin Trade Name Freq PRN Reason Stop Dose Admin Orphenadrine Citrate 60 mg 07/10/17 20:30 07/10/17 20:30 Norflex IM 60 mg Q12H ARNOLD Administration Discontinued Medications Generic Name Dose Route Start Last Admin Trade Name Freq PRN Reason Stop Dose Admin Hydromorphone HCl 0.5 mg 07/10/17 20:20 07/10/17 20:28 Dilaudid IVPUSH 07/10/17 20:21 0.5 mg ONETIME ONE Administration Sodium Chloride 1,000 mls @ 999 mls/hr 07/10/17 19:21 07/10/17 19:31 Normal Saline IV 07/10/17 20:21 999 mls/hr .BOLUS ONE Administration Ketorolac Tromethamine 30 mg 07/10/17 19:21 07/10/17 19:31 Toradol IVPUSH 07/10/17 19:22 30 mg ONETIME ONE Administration Ondansetron HCl 4 mg 07/10/17 19:21 07/10/17 19:32 Zofran IV 07/10/17 19:22 4 mg ONETIME ONE Administration Promethazine HCl 25 mg 07/10/17 20:19 07/10/17 20:30 Phenergan IM 07/10/17 20:20 25 mg ONETIME ONE Administration Departure - Departure Disposition: Home, Self-Care 01 Clinical Impression: Gastroenteritis, Muscle spasm of back Back pain Qualifiers: Back pain location: low back pain Chronicity: chronic Back pain laterality: right Sciatica presence: without sciatica Qualified Code(s): M54.5 - Low back pain; G89.29 - Other chronic pain; G89.29 - Other chronic pain Migraine headache Qualifiers: Migraine type: hemiplegic Status migrainosus presence: without status migrainosus Intractability: not intractable Qualified Code(s): G43.409 - Hemiplegic migraine, not intractable, without status migrainosus - Discharge Information Instructions: Muscle Cramps and Spasms, [id number], Chronic Back Pain, Viral Gastroenteritis, Adult, [id number] Forms: ED Department Discharge Care Plan Goals: The patient was advised of the examination and lab results during the visit. The patient was given IV fluids, IV Zofran, IV Dilaudid, IM Phenergan and IM Norflex while in the ED. The patient was discharged with a script for Toradol ( 10 mg) #20 to take 1 by mouth every 6 hours and Flexeril (10 mg) #10 to take 1 by mouth at bedtime as needed. The patient should stick to a BRAT diet over the next 48 hours with small frequent sips of fluid. If the patient has any additional symptoms or further concerns, the patient should follow-up with her primary care facility or return to the emergency department. - My Orders Last 24 Hours: My Active Orders 07/10/17 20:30 Orphenadrine [Norflex] 60 mg IM Q12H - Assessment/Plan Last 24 Hours: My Active Orders 07/10/17 20:30 Orphenadrine [Norflex] 60 mg IM Q12H <Dima Stallworth - Last Filed: 07/10/17 21:04> ED HPI GENERAL MEDICAL PROBLEM - History of Present Illness INITIAL COMMENTS - FREE TEXT/NARRATIVE: This 41 yo female patient reports to the ED with right flank pain for the past 2 days along with diarrhea for the past 1-2 weeks. The patient reports she has been seen in the [facility] (last visit was 06/23/17) and was advised that her liver and kidney function tests were "off". The patient reports she has has also been having a headache over the past 2 days. The patient reports that she took her Sumatriptan and ibuprofen with no symptom relief. The patient also reports she vomited 2 times today. Onset: Gradual Duration: Week(s):, Constant, Getting Worse Location: Reports: Head, Abdomen, Back (right flank), Generalized Quality: Reports: Other Severity: Moderate Improves with: Reports: None Worsens with: Reports: None Associated Symptoms: Reports: Headaches, Nausea/Vomiting, Other (diarrhea) Treatments GRILL COOK: Reports: NSAIDS ED ROS GENERAL - Review of Systems Review Of Systems: ROS reveals no pertinent complaints other than HPI. ED EXAM, GI/ABD - Physical Exam Exam: See Below Exam Limited By: No Limitations General Appearance: Alert, WD/WN, Moderate Distress, Obese Eyes: Bilateral: Normal Appearance, EOMI Ears: Normal External Exam, Normal Canal, Hearing Grossly Normal, Normal TMs Nose: Normal Inspection, Normal Mucosa, No Blood Throat/Mouth: Normal Inspection, Normal Lips, Normal Teeth, Normal Gums, Normal Oropharynx, Normal Voice, No Airway Compromise Head: Atraumatic, Normocephalic Neck: Normal Inspection, Supple, Non-Tender, Full Range of Motion Respiratory/Chest: No Respiratory Distress, Lungs Clear, Normal Breath Sounds, No Accessory Muscle Use, Chest Non-Tender Cardiovascular: Normal Peripheral Pulses, Regular Rate, Rhythm, No Edema, No Gallop, No JVD, No Murmur, No Rub GI/Abdominal Exam: Abnormal Bowel Sounds, Other (morbid obesity) (Female) Exam: Deferred Rectal (Female) Exam: Deferred Back Exam: Normal Inspection, Full Range of Motion, NT Extremities: Normal Inspection, Normal Range of Motion, Non-Tender, Normal Capillary Refill, No Pedal Edema Neurological: Alert, Oriented, CN II-XII Intact, Normal Cognition, Normal Gait, Normal Reflexes, No Motor/Sensory Deficits Psychiatric: Normal Affect, Normal Mood Skin Exam: Warm, Dry, Intact, Normal Color, No Rash Lymphatic: No Adenopathy Departure - Departure Time of Disposition: 21:00 Condition: Fair I have read and agree with the documentation that has been completed regarding this visit. By signing this record, I attest that the documentation was completed in my physical presence and is an accurate record of the encounter.
[2017-07-10] MEDS ORDERED: Ketorolac 30 MG/ML SDV IVPUSH ONE (19:21)
[2017-07-10] MEDS ORDERED: Ondansetron 4 MG/2 ML SDV IV ONE (19:21)
[2017-07-10] MEDS ORDERED: Sodium Chloride 0.9% 1,000 ML IV ONE (19:21)
[2017-07-10 19:58] LABS: CHLORIDE,CL 111 mmol/L (101-111); SODIUM,NA 139 mmol/L (135-145)
[2017-07-10] MEDS ORDERED: Promethazine 25 MG/ML SDV IM ONE (20:19)
[2017-07-10] MEDS ORDERED: HYDROmorphone 0.5 MG/0.5 ML Syringe IVPUSH ONE (20:20)
== END 2017-07-10 21:55 | disposition home or self-care (01) ==
LOC: DL.ED 17:22
DX: K52.9 Noninfective gastroenteritis and colitis, unspecified (principal); M62.830 Muscle spasm of back; G43.409 Hemiplegic migraine, not intractable, without status migrainosus; F17.210 Nicotine dependence, cigarettes, uncomplicated; Z88.0 Allergy status to penicillin; Z88.6 Allergy status to analgesic agent; Z88.1 Allergy status to other antibiotic agents; Z88.2 Allergy status to sulfonamides; Z90.49 Acquired absence of other specified parts of digestive tract
CPT/HCPCS: 36415; 80053; 80305; 81001; 82150; 83690; 83735; 85025; 96361; 96372; 96374; 96375; 99284; J1170; J1885; J2360; J2405; J2550; J7030

== ENCOUNTER → 2018-08-19 | Day surgery (SDC) | payer MEDICAID ==
[~2018-08-19] MED LIST: Clindamycin Phosphate 600 MG in Sodium Chloride 0.9% 100 ML IV SCH; Lactated Ringers 1,000 ML IV SCH; Sodium Chloride 0.9% 10 ML Syringe FLUSH PRN
== END ==
LOC: DL.SDS 05:47
PROVIDERS: ATTEND Podiatrist

== ENCOUNTER 2018-09-23 05:42 | Day surgery (SDC) | payer MEDICAID ==
[2018-09-23] MEDS ORDERED: Midazolam 1 MG/ML 2 ML SDV IV ONE (05:43)
[2018-09-23] MEDS ORDERED: HYDROmorphone 0.5 MG/0.5 ML Syringe IVPUSH ONE (05:43)
[2018-09-23] MEDS ORDERED: Ondansetron 4 MG/2 ML SDV IV ONE (05:43)
[2018-09-23] MEDS ORDERED: fentaNYL 100 MCG/2 ML SDV IV ONE (05:43)
[2018-09-23] MEDS ORDERED: Propofol 200 MG/20 ML SDV IV ONE (05:43)
[2018-09-23] MEDS ORDERED: Dexamethasone 4 MG/ML SDV IV ONE (05:43)
[2018-09-23] MEDS ORDERED: Sodium Chloride 0.9% 10 ML Syringe FLUSH PRN ×2 (08:00)
[2018-09-23] MEDS ORDERED: Lactated Ringers 1,000 ML IV SCH (08:00)
[2018-09-23] MEDS ORDERED: Bupivacaine 0.5% 30 ML SDV ONE (10:00)
[2018-09-23] MEDS ORDERED: Lidocaine 1% 30 ML SDV ONE (10:01)
[2018-09-23] MEDS ORDERED: Bupivacaine 0.5% 30 ML SDV INJECT ONE ×3 (10:32→14:23)
[2018-09-23] MEDS ORDERED: Lidocaine 1% 30 ML SDV INJECT ONE ×3 (10:32→14:23)
[2018-09-23] MEDS ORDERED: oxyCODONE 5 MG Tab PO PRN (12:14)
--- NOTE | 2018-09-23 12:17 | PCM.OPNOTE ---
- General Post-Op/Procedure Note Date of Surgery/Procedure: 09/23/18 Operative Procedure(s): Left foot first metatarsal osteotomy/bunionectomy Pre Op Diagnosis: left foot painful bunion Post-Op Diagnosis: cecilia Anesthesia Technique: General LMA Primary Surgeon: Veronica Amador Anesthesia Provider: Chacorta Rivera EBL in mLs: 5 Complications: none Condition: Good Free Text/Narrative:: Pt tolerated procedure well and was transported to recovery with vascular status intact to left foot. Cesar 3.0 cannulated screw to 1st metatarsal. Well padded compression dressing applied.
[2018-09-23 15:25] VITALS: BP 115/51
--- NOTE | 2018-09-24 17:26 | OR ---
DATE: 09/23/2018 PREOPERATIVE DIAGNOSIS: Left foot painful bunion. POSTOPERATIVE DIAGNOSIS: Left foot painful bunion. PROCEDURE PERFORMED: Left foot 1st metatarsal osteotomy/bunionectomy. ANESTHESIA: General LMA with local block of 10 mL of 1:1 mixture of 1% lidocaine plain and 0.5% Marcaine plain. TOURNIQUET TIME: 68 minutes, pneumatic ankle tourniquet. ESTIMATED BLOOD LOSS: Minimal. SPECIMEN: None. COMPLICATIONS: None. INDICATIONS: Alexandria is a 42-year-old female, who presents with left foot bunion pain. I have been seeing her for several years for different issues on her feet. She has been having problems with the bunion for a couple of years now and it is gradually worsening. She is at the point where she cannot even walk on that part of the foot. She has been wearing a boot on and off and also has been walking on the outside of her foot. It does swell up on her by the end of the day. She has been wearing wider shoes with inserts with no relief. She does work on her feet all day. X-rays, 3 views of the left foot today reveals mild bunion deformity present with IM of 7 degrees, but with a metatarsus adductus approximately 27 degrees, making her IM 14 degrees. Some mild spurring of the 1st MTPJ. No signs of fracture. The patient voiced good understanding of the proposed procedure and possible complications and elects to have surgery at this time. DESCRIPTION OF PROCEDURE: The patient was taken to the operating room lying in supine position. After adequate anesthesia induction as described above, the left foot was prepped and draped in the usual sterile fashion. A pneumatic ankle tourniquet was inflated to 225 mmHg. Attention was then directed to the dorsal aspect of the 1st metatarsal where an approximately 5 cm linear incision was made overlying the 1st MTPJ. Sharp and blunt dissection was performed down to the level of the joint capsule with care to gently retract all neurovascular structures. A lateral release was not performed. The capsule was reflected to expose the 1st MTPJ. A sagittal saw was used to remove the hypertrophic medial and dorsomedial eminence. Inspection of the 1st metatarsal revealed a small defect at the articular cartilage at the center plantar aspect, which was drilled with a K-wire today. An osteotomy was made with the plantar osteotomy parallel to the weightbearing surface, starting at a point 1 cm proximal to the articular cartilage of the 1st metatarsal and a horizontal osteotomy made perpendicular to the plantar osteotomy. The capital fragment was then shifted laterally approximately 5 mm and impacted on the 1st metatarsal shaft. Temporary fixation was placed with K-wires and fluoroscopy was used to verify proper positioning of the osteotomy site as well as screw fixation. One Marion cannulated 3.0 screw was then placed across the osteotomy site. The capital fragment was noted to be stable with all forces applied. Fluoroscopy was then again used to verify proper positioning of the screw. The hallux was noted to be in a rectus alignment at this time. The area was irrigated with copious amounts of sterile saline. Capsular closure was completed with 3-0 Vicryl and skin closure was completed with 4-0 nylon. The foot was then dressed with Xeroform to the incision site, fluffs, Webril, and an Naresh wrap. She will be nonweightbearing. She left the operating room for recovery with vital signs stable in good condition with vascular status intact to the left foot as noted by immediate hyperemia upon deflation of the tourniquet. The patient was then discharged home when she met hospital discharge requirements. [facility] /[id number]
== END 2018-09-23 14:35 | disposition home or self-care (01) ==
LOC: DL.SDS 05:42
PROVIDERS: ATTEND Podiatrist
DX: M21.612 Bunion of left foot (principal); J45.909 Unspecified asthma, uncomplicated; F17.210 Nicotine dependence, cigarettes, uncomplicated; F41.9 Anxiety disorder, unspecified; M51.36 Other intervertebral disc degeneration, lumbar region; M79.7 Fibromyalgia; E66.01 Morbid (severe) obesity due to excess calories; Z68.42 Body mass index [BMI] 45.0-49.9, adult; Z88.2 Allergy status to sulfonamides; Z88.1 Allergy status to other antibiotic agents; Z88.6 Allergy status to analgesic agent; Z88.0 Allergy status to penicillin; Z88.8 Allergy status to other drugs, medicaments and biological substances; Z91.040 Latex allergy status; Z79.899 Other long term (current) drug therapy
CPT/HCPCS: A9270-GY; C1713; J1100; J1170; J2001; J2250; J2405; J2704; J3010; J3490; J7120

== ENCOUNTER 2019-10-22 16:08 | Emergency (ER) | payer BC, MEDICAID, OTHER ==
[2019-10-22] MEDS ORDERED: Cyclobenzaprine 10 MG Tab PO ONE (16:09)
[2019-10-22 16:16] VITALS: BP 105/51; PULSE 90
[2019-10-22] MEDS ORDERED: methylPREDNISolone Sodium Succinate 125 MG/2 ML SDV IM ONE (16:36)
--- NOTE | 2019-10-22 16:44 | EDM.PDOC ---
ED HPI GENERAL MEDICAL PROBLEM - General Chief Complaint: Back Pain or Injury Stated Complaint: THREW LOWER BACK OUT Time Seen by Provider: 10/22/19 16:30 Source of Information: Reports: Patient History Limitations: Reports: No Limitations - History of Present Illness INITIAL COMMENTS - FREE TEXT/NARRATIVE: This 43 yo female patient reports to the ED with lower back pain radiating to her right leg. 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 The patient reports she has been working every day with increased back pain that has been getting worse. The patient reports last night she "almost did not make it to the bathroom" due to the back pain. The patient also reports intermittent episodes of pain shooting down into her right hip and leg. The patient reports most of her pain is in the lower back (L4-L5 area). 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: Reports: NSAIDS (At 1000 this morning.) Lower Back Pain Score (Numeric/FACES): 9 - Related Data Allergies Allergy/AdvReac Type Severity Reaction Status Date / Time Penicillins Allergy Mild Rash Verified 10/22/19 16:16 acetaminophen Allergy Liver Verified 10/22/19 16:16 Problems amoxicillin trihydrate Allergy Itching Verified 10/22/19 16:16 [From Augmentin] aspirin Allergy Nausea Verified 10/22/19 16:16 azithromycin [From Zithromax] Allergy Nausea and Verified 10/22/19 16:16 Vomiting cefdinir [Cefdinir] Allergy Hives Verified 10/22/19 16:16 erythromycin base Allergy Swelling Verified 10/22/19 16:16 latex Allergy Blisters Verified 10/22/19 16:16 penicillin G procaine Allergy Hives Verified 10/22/19 16:16 squid Allergy Anaphylactic Verified 10/22/19 16:16 Shock Sulfa (Sulfonamide Allergy Nausea and Verified 09/22/18 14:24 Antibiotics) Vomiting valdecoxib [From Bextra] Allergy Stomach Verified 09/22/18 14:24 Upset Home Meds: Home Meds Albuterol [Proair HFA] 2 puff INH Q4HR PRN 09/29/13 [History] Gabapentin [Neurontin] 400 mg PO DAILY 12/28/15 [History] SUMAtriptan succinate [Imitrex] 100 mg PO ASDIRECTED PRN 08/17/18 [History] Sennosides/Docusate Sodium [Senna-Docusate Sodium Tablet] 2 tab PO BID 08/17/18 [History] diphenhydrAMINE [Benadryl] 25 mg PO DAILY 08/17/18 [History] hydrOXYzine HCL [hydrOXYzine] 25 mg PO DAILY 08/17/18 [History] Meloxicam 15 mg DAILY 10/22/19 [History] Past Medical History - Past Health History Medical/Surgical History: Denies Medical/Surgical History HEENT History: Reports: Otitis Media, Sinusitis Cardiovascular History: Reports: Other (See Below) Other Cardiovascular History: edema Respiratory History: Reports: Other (See Below) Other Respiratory History: Environmental allergies Gastrointestinal History: Reports: Colon Polyp, Diverticulosis, Hemorrhoids, Irritable Bowel Syndrome, Other (See Below) Other Gastrointestinal History: "liver functions off" Genitourinary History: Reports: UTI, Recurrent, Other (See Below) Other Genitourinary History: Innersticial cystitis. 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 wrist and feet. CARPAL TUNNEL SYNDROME Neurological History: Reports: Concussion, Migraines, Seizure, Vertigo Psychiatric History: Reports: Anxiety, PTSD Endocrine/Metabolic History: Reports: Diabetes, Gestational, Obesity/BMI 30+ Hematologic History: Reports: Other (See Below) Other Hematologic History: Clotting problem at time of surgery AFTER HYSTERECTOMY Immunologic History: Reports: None Oncologic (Cancer) History: Reports: None Dermatologic History: Reports: Eczema, Other (See Below) Other Dermatologic History: MRSA. boils - Infectious Disease History Infectious Disease History: Reports: Chicken Pox, MRSA - Past Surgical History Head Surgeries/Procedures: Reports: None HEENT Surgical History: Reports: Oral Surgery Other HEENT Surgeries/Procedures: wisdom teeth removed Cardiovascular Surgical History: Reports: None, Other (See Below) Other Cardiovascular Surgeries/Procedures: HX OF ELECTROCARDIOGRAM 2010 Respiratory Surgical History: Reports: None GI Surgical History: Reports: Cholecystectomy, Colonoscopy Female Surgical History: Reports: Hysterectomy, Salpingo-Oophorectomy Endocrine Surgical History: Reports: None Neurological Surgical History: Reports: None Musculoskeletal Surgical History: Reports: Other (See Below) Other Musculoskeletal Surgeries/Procedures:: left knee cleaned out. FOOT PLANTAR FASCIA RELEASE RIGHT. FOOT SURGERY LEFT BONE CHIPS REMOVED. BUNIONECTOMY LEFT Oncologic Surgical History: Reports: None Dermatological Surgical History: Reports: None Social & Family History - Family History Family Medical History: Noncontributory - Tobacco Use Smoking Status *Q: Current Every Day Smoker Years of Tobacco use: 30 Packs/Tins Daily: 0.3 Second Hand Smoke Exposure: Yes - Caffeine Use Caffeine Use: Reports: Coffee, Energy Drinks Other Caffeine Use: AVERAGE OF COUPLE COFFEE PER DAY, NO FURTHER ENERGY DRINKS - Recreational Drug Use Recreational Drug Use: No - Sexual History Sexual History: Reports: None. Denies: Sexually Active - Living Situation & Occupation Living situation: Reports: with Family Occupation: Employed ED ROS GENERAL - Review of Systems Review Of Systems: Comprehensive ROS is negative, except as noted in HPI. ED EXAM,LOWER BACK PAIN/INJURY - Physical Exam Exam: See Below Exam Limited By: No Limitations General Appearance: Alert, WD/WN, Moderate Distress, Obese Eye Exam: Bilateral Eye: EOMI, Normal Inspection, PERRL Ears: Normal External Exam, Normal Canal, Hearing Grossly Normal, Normal TMs Nose: Normal Inspection, Normal Mucosa, No Blood Throat/Mouth: Normal Inspection, Normal Lips, Normal Teeth, Normal Gums, Normal Oropharynx, Normal Voice, No Airway Compromise Head: Atraumatic, Normocephalic Neck: Normal Inspection, Supple, Non-Tender, Full Range of Motion Respiratory/Chest: No Respiratory Distress, Lungs Clear, Normal Breath Sounds, No Accessory Muscle Use, Chest Non-Tender Cardiovascular: Normal Peripheral Pulses, Regular Rate, Rhythm, No Edema, No Gallop, No JVD, No Murmur, No Rub GI/Abdominal: Normal Bowel Sounds, Soft, Non-Tender, No Organomegaly, No Distention, No Abnormal Bruit, No Mass, Other (obese) (Female) Exam: Deferred Rectal (Female) Exam: Deferred Back Exam: Decreased Range of Motion, Muscle Spasm (right sided of lower back), Paraspinal Tenderness (lower back (right side worse than left)), Vertebral Tenderness (L4-L5) Neurological: Alert, Normal Mood/Affect, CN II-XII Intact, No Motor/Sensory Deficits, Oriented x 3 Psychiatric: Normal Affect, Normal Mood Skin Exam: Warm, Dry, Intact, Normal Color, No Rash Lymphatic: No Adenopathy Course - Vital Signs Last Recorded V/S: Last Vital Signs Temp 35.8 C L 10/22/19 16:10 Pulse 90 10/22/19 16:10 Resp 18 10/22/19 16:10 BP 105/51 L 10/22/19 16:10 Pulse Ox 98 10/22/19 16:10 - Orders/Labs/Meds Meds: Medications Discontinued Medications Generic Name Dose Route Start Last Admin Trade Name Van PRN Reason Stop Dose Admin Methylprednisolone Sodium Succinate 125 mg 10/22/19 16:36 10/22/19 16:45 Solu-Medrol IM 10/22/19 16:37 125 mg ONETIME ONE Administration Departure - Departure Time of Disposition: 17:18 Disposition: Home, Self-Care 01 Condition: Fair Clinical Impression: Low back strain Qualifiers: Encounter type: initial encounter Qualified Code(s): S39.012A - Strain of muscle, fascia and tendon of lower back, initial encounter - Discharge Information *PRESCRIPTION DRUG MONITORING PROGRAM REVIEWED*: Not Applicable *COPY OF PRESCRIPTION DRUG MONITORING REPORT IN PATIENT BETSY: Not Applicable Instructions: Back Injury Prevention, [id number], Muscle Strain, [id number] Forms: ED Department Discharge Care Plan Goals: The patient was advised of the examination results during the visit. The patient was given an injection of Solumedrol (125 mg) while in the ED. The patient was discharged with scripts for Prednisone (20 mg) #10 to take 2 by mouth for 5 days and Flexeril (10 mg) #20 to take 1 by mouth at bedtime as needed. If the patient has any additional symptoms or concerns, the patient should either return to the emergency department or visit her primary care facility. Sepsis Event Note - Evaluation Sepsis Screening Result: No Definite Risk - Focused Exam Vital Signs: Vital Signs Temp Pulse Resp BP Pulse Ox 10/22/19 16:10 35.8 C L 90 18 105/51 L 98 Date Exam was Performed: 10/22/19 Time Exam was Performed: 17:17
[2019-10-22] MEDS ORDERED: Cyclobenzaprine 10 MG Tab ONE (17:19)
== END 2019-10-22 17:26 | disposition home or self-care (01) ==
LOC: DL.ED 16:08
DX: S39.012A Strain of muscle, fascia and tendon of lower back, initial encounter (principal); F41.9 Anxiety disorder, unspecified; E66.9 Obesity, unspecified; F17.210 Nicotine dependence, cigarettes, uncomplicated; Z68.42 Body mass index [BMI] 45.0-49.9, adult; Z88.0 Allergy status to penicillin; Z88.6 Allergy status to analgesic agent; Z88.1 Allergy status to other antibiotic agents; Z88.8 Allergy status to other drugs, medicaments and biological substances; Z91.013 Allergy to seafood; Z91.040 Latex allergy status; Z88.2 Allergy status to sulfonamides; Z79.899 Other long term (current) drug therapy; X50.0XXA Overexertion from strenuous movement or load, initial encounter; Y93.F2 Activity, caregiving, lifting; Y92.129 Unspecified place in nursing home as the place of occurrence of the external cause; Y99.0 Civilian activity done for income or pay
CPT/HCPCS: 72100; 96372; 99283; A9270; J2930

== ENCOUNTER 2020-05-09 13:19 | Emergency (ER) | payer BC ==
[2020-05-09 13:51] VITALS: BP 124/74; PULSE 90
--- NOTE | 2020-05-09 14:18 | EDM.PDOC ---
ED HPI GENERAL MEDICAL PROBLEM - General Chief Complaint: Abdominal Pain Stated Complaint: ABDOMINAL PAIN ON RIGHT SIDE, NAUSEA Time Seen by Provider: 05/09/20 14:00 Source of Information: Reports: Patient, RN, RN Notes Reviewed History Limitations: Reports: No Limitations - History of Present Illness INITIAL COMMENTS - FREE TEXT/NARRATIVE: Patient presents to the ED via personal vehicle with complaints of pain to right, lateral chest wall. She reports the pain began abruptly about one hour ago and is sharp in character. She states the pain is localized the the right lateral chest/upper abdominal region and does not radiate. She reports feeling short of breath and worsening pain in the area when taking a deep breath. Additionally, she reports feelings of nausea with the pain and has experienced two bouts of frothy, yellow emesis. She denies fever, shaking chills, recent illness, vision changes, sore throat, cough, diarrhea, melena, or hematochezia. Right Upper Abdomen Pain Score (Numeric/FACES): 7 - Related Data Allergies Allergy/AdvReac Type Severity Reaction Status Date / Time Penicillins Allergy Mild Rash Verified 05/09/20 13:47 acetaminophen Allergy Liver Verified 05/09/20 13:47 Problems amoxicillin trihydrate Allergy Itching Verified 05/09/20 13:47 [From Augmentin] aspirin Allergy Nausea Verified 05/09/20 13:47 azithromycin [From Zithromax] Allergy Nausea and Verified 05/09/20 13:47 Vomiting cefdinir [Cefdinir] Allergy Hives Verified 05/09/20 13:47 erythromycin base Allergy Swelling Verified 05/09/20 13:47 latex Allergy Blisters Verified 05/09/20 13:47 penicillin G procaine Allergy Hives Verified 05/09/20 13:47 squid Allergy Anaphylactic Verified 05/09/20 13:47 Shock Sulfa (Sulfonamide Allergy Nausea and Verified 05/09/20 13:47 Antibiotics) Vomiting valdecoxib [From Bextra] Allergy Stomach Verified 05/09/20 13:47 Upset Home Meds: Home Meds Albuterol [Proair HFA] 2 puff INH Q4HR PRN 09/29/13 [History] Gabapentin [Neurontin] 400 mg PO DAILY 12/28/15 [History] SUMAtriptan succinate [Imitrex] 100 mg PO ASDIRECTED PRN 08/17/18 [History] Sennosides/Docusate Sodium [Senna-Docusate Sodium Tablet] 2 tab PO BID 08/17/18 [History] diphenhydrAMINE [Benadryl] 25 mg PO DAILY 08/17/18 [History] hydrOXYzine HCL [hydrOXYzine] 25 mg PO DAILY 08/17/18 [History] Meloxicam 15 mg DAILY 10/22/19 [History] Past Medical History - Past Health History Medical/Surgical History: Denies Medical/Surgical History HEENT History: Reports: Otitis Media, Sinusitis Cardiovascular History: Reports: Other (See Below) Other Cardiovascular History: edema Respiratory History: Reports: Other (See Below) Other Respiratory History: Environmental allergies Gastrointestinal History: Reports: Colon Polyp, Diverticulosis, Hemorrhoids, Irritable Bowel Syndrome, Other (See Below) Other Gastrointestinal History: "liver functions off" Genitourinary History: Reports: UTI, Recurrent, Other (See Below) Other Genitourinary History: Innersticial cystitis. 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 wrist and feet. CARPAL TUNNEL SYNDROME Neurological History: Reports: Concussion, Migraines, Seizure, Vertigo Psychiatric History: Reports: Anxiety, PTSD Endocrine/Metabolic History: Reports: Diabetes, Gestational, Obesity/BMI 30+ Hematologic History: Reports: Other (See Below) Other Hematologic History: Clotting problem at time of surgery AFTER HYSTERECTOMY Immunologic History: Reports: None Oncologic (Cancer) History: Reports: None Dermatologic History: Reports: Eczema, Other (See Below) Other Dermatologic History: MRSA. boils - Infectious Disease History Infectious Disease History: Reports: Chicken Pox, MRSA - Past Surgical History Head Surgeries/Procedures: Reports: None HEENT Surgical History: Reports: Oral Surgery Other HEENT Surgeries/Procedures: wisdom teeth removed Cardiovascular Surgical History: Reports: None, Other (See Below) Other Cardiovascular Surgeries/Procedures: HX OF ELECTROCARDIOGRAM 2010 Respiratory Surgical History: Reports: None GI Surgical History: Reports: Cholecystectomy, Colonoscopy Female Surgical History: Reports: Hysterectomy, Salpingo-Oophorectomy Endocrine Surgical History: Reports: None Neurological Surgical History: Reports: None Musculoskeletal Surgical History: Reports: Other (See Below) Other Musculoskeletal Surgeries/Procedures:: left knee cleaned out. FOOT PLANTAR FASCIA RELEASE RIGHT. FOOT SURGERY LEFT BONE CHIPS REMOVED. BUNIONECTOMY LEFT Oncologic Surgical History: Reports: None Dermatological Surgical History: Reports: None Social & Family History - Family History Family Medical History: No Pertinent Family History - Tobacco Use Tobacco Use Status *Q: Current Every Day Tobacco User Years of Tobacco use: 30 Packs/Tins Daily: 1 - Caffeine Use Caffeine Use: Reports: Coffee, Energy Drinks Other Caffeine Use: AVERAGE OF COUPLE COFFEE PER DAY, NO FURTHER ENERGY DRINKS - Recreational Drug Use Recreational Drug Use: No - Sexual History Sexual History: Reports: None. Denies: Sexually Active - Living Situation & Occupation Living situation: Reports: with Family Occupation: Employed ED ROS GENERAL - Review of Systems Review Of Systems: Comprehensive ROS is negative, except as noted in HPI. ED EXAM, GI/ABD - Physical Exam Exam: See Below Exam Limited By: No Limitations General Appearance: Alert, WD/WN, No Apparent Distress Eyes: Bilateral: Normal Appearance, EOMI Throat/Mouth: Normal Inspection, Normal Voice, No Airway Compromise Head: Atraumatic, Normocephalic Neck: Normal Inspection, Supple, Non-Tender, Full Range of Motion Respiratory/Chest: No Respiratory Distress, Lungs Clear, Normal Breath Sounds, No Accessory Muscle Use. No: Chest Non-Tender (Pain with deep inspiration) Cardiovascular: Regular Rate, Rhythm, No Edema, No Gallop, No JVD, No Murmur, Friction Rub (Systolic) GI/Abdominal Exam: Soft, Non-Tender (To palpation), No Distention, No Mass, Pelvis Stable, Abnormal Bowel Sounds (Hypoactive bowel sounds) (Female) Exam: Deferred Rectal (Female) Exam: Deferred Back Exam: Normal Inspection, Full Range of Motion. No: CVA Tenderness (L), CVA Tenderness (R) Extremities: Normal Inspection, Normal Range of Motion, Non-Tender, No Pedal Edema, Normal Capillary Refill Neurological: Alert, Oriented, CN II-XII Intact, Normal Cognition, Normal Gait, No Motor/Sensory Deficits Psychiatric: Normal Affect, Normal Mood Skin Exam: Warm, Dry, Intact, Normal Color, No Rash. No: Ecchymosis, Erythema, Mottled, Pallor, Petechiae #1 Interpretation EKG Date: 12/02/20 Time: 14:14 Rhythm: NSR Rate (Beats/Min): 72 [place]: Normal P-Wave: Present QRS: Normal ST-T: Normal QT: Normal Comparison: No Change EKG Interpretation Comments: NSR; No evidence of acute ischemia Course - Vital Signs Last Recorded V/S: Last Vital Signs Temp 98.1 F 05/09/20 13:48 Pulse 90 05/09/20 13:48 Resp 16 05/09/20 13:48 BP 124/74 05/09/20 13:48 Pulse Ox 99 05/09/20 13:48 - Orders/Labs/Meds Orders: Active Orders 24 hr Category Date Time Status EKG Documentation Completion [RC] STAT Care 05/09/20 14:03 Active Labs: Laboratory Tests 05/09/20 05/09/20 05/09/20 Range/Units 14:13 14:13 16:34 WBC 9.6 (5.0-10.0) 10^3/uL RBC 4.42 (4.2-5.4) 10^6/uL Hgb 12.6 D (12.0-16.0) g/dL Hct 38.0 (37.0-47.0) % MCV 86.0 (80-100) fL MCH 28.5 (27.0-34.0) pg MCHC 33.2 (33.0-35.0) g/dL Plt Count 244 (150-450) 10^3/uL Neut % (Auto) 65.3 (42.2-75.2) % Lymph % (Auto) 26.3 (20.5-50.1) % [place] % (Auto) 6.1 (2-8) % Eos % (Auto) 2.1 (1.0-3.0) % Baso % (Auto) 0.2 (0.0-1.0) % Sodium 138 (136-145) mmol/L Potassium 4.2 (3.5-5.1) mmol/L Chloride 102 (98-107) mmol/L Carbon Dioxide 27 (21-32) mmol/L Anion Gap 13.2 H (7-13) mEq/L BUN 16 (7-18) mg/dL Creatinine 0.96 (0.55-1.02) mg/dL Est Cr Clr Drug Dosing 68.69 mL/min Estimated GFR (MDRD) > 60 BUN/Creatinine Ratio 16.7 (No establ ref range) Glucose 97 (74-99) mg/dL Calcium 9.1 (8.5-10.1) mg/dL Total Bilirubin 0.3 (0.2-1.0) mg/dL AST 18 (15-37) U/L ALT 35 (14-59) U/L Alkaline Phosphatase 90 (46-116) U/L Troponin I < 0.017 (0.000-0.056) ng/mL C-Reactive Protein 1.8 H (0.0-0.9) mg/dL Total Protein 7.0 (6.4-8.2) g/dL Albumin 3.8 (3.4-5.0) g/dL Globulin 3.2 Albumin/Globulin Ratio 1.2 Amylase 53 (25-115) U/L Lipase 71 L (73-393) U/L Urine Color Yellow (YELLOW) Urine Appearance Clear (CLEAR) Urine pH 6.5 (5.0-9.0) Ur Specific [place] 1.015 (1.005-1.030) Urine Protein Negative (NEGATIVE) Urine Glucose (UA) Negative (NEGATIVE) Urine Ketones Negative (NEGATIVE) Urine Occult Blood Negative (NEGATIVE) Urine Nitrite Negative (NEGATIVE) Urine Bilirubin Negative (NEGATIVE) Urine Urobilinogen 0.2 (0.2-1.0) mg/dL Ur Leukocyte Esterase Negative (NEGATIVE) Meds: Medications Discontinued Medications Generic Name Dose Route Start Last Admin Trade Name Freq PRN Reason Stop Dose Admin Iopamidol 100 ml 05/09/20 16:43 Isovue-370 (76%) IVPUSH 05/09/20 16:44 ONETIME ONE Iopamidol 100 ml 05/09/20 16:45 05/09/20 15:38 Isovue-300 (61%) IVPUSH 05/09/20 16:46 100 ml ONETIME ONE Administration Ketorolac Tromethamine 30 mg 05/09/20 14:47 05/09/20 14:53 Toradol IM 05/09/20 14:48 30 mg ONETIME ONE Administration Tramadol HCl 50 mg 05/09/20 16:13 05/09/20 16:27 Ultram PO 05/09/20 16:14 50 mg ONETIME ONE Administration - Re-Assessments/Exams Free Text/Narrative Re-Assessment/Exam: 05/09/20 Patient stating no improvement in pain following Toradol injection. Cardiac workup negative for acute processes. CRP slightly elevated at 1.9. Will obtain ABD/Pelvis CT and UA. Workup unremarkable for causes of chest pain/upper abdominal pain. Patient states pain somewhat improved with Ultram. Will instruct patient to follow up with primary care provider regarding ongoing investigation into pain. Departure - Departure Time of Disposition: 15:01 Disposition: Home, Self-Care 01 Condition: Good Clinical Impression: Chest wall pain - Discharge Information *PRESCRIPTION DRUG MONITORING PROGRAM REVIEWED*: Not Applicable *COPY OF PRESCRIPTION DRUG MONITORING REPORT IN PATIENT BETSY: Not Applicable Instructions: Abdominal Pain, Adult, [id number], Nonspecific Chest Pain, Adult, [id number] Forms: ED Department Discharge Additional Instructions: Your workup today was negative for acute processes. Follow up with your primary care provider regarding today's visit and ongoing investigation into acute pain. Sepsis Event Note (ED) - Evaluation Sepsis Screening Result: No Definite Risk - Focused Exam Vital Signs: Vital Signs Temp Pulse Resp BP Pulse Ox 05/09/20 13:48 98.1 F 90 16 124/74 99 - My Orders Last 24 Hours: My Active Orders 05/09/20 14:03 EKG Documentation Completion [RC] STAT - Assessment/Plan Last 24 Hours: My Active Orders 05/09/20 14:03 EKG Documentation Completion [RC] STAT
[2020-05-09] MEDS ORDERED: Ketorolac 30 MG/ML SDV IVPUSH ONE (14:27)
[2020-05-09 14:39] LABS: ANION GAP 13.2 mEq/L (7-13); CHLORIDE,CL 102 mmol/L (98-107); SODIUM,NA 138 mmol/L (136-145)
[2020-05-09] MEDS ORDERED: Ketorolac 30 MG/ML SDV IM ONE (14:47)
--- NOTE | 2020-05-09 16:11 | CT ---
EXAMINATION: Abdomen Pelvis w Cont SEX: Female AGE: 44 years CLINICAL HISTORY: 44-year-old female smoker in the emergency department with vomiting and right upper quadrant pain (history cholecystectomy and hysterectomy). Normal WBC (9000). Scan technique: Volume acquisition of data from the abdomen and pelvis obtained without oral contrast but during intravenous administration 100 cc nonionic Isovue contrast 3 cc/s via injector while patient was lying supine on the Siemens multislice scanner [place], [place]. All data archived in the PACS system for storage, reformatting axial/sagittal/coronal planes and study. Interpretation: 1. Surgical clips RUQ (gallbladder fossa). Normal liver without sign of parenchymal mass/abscess or abnormal dilatation of the intra/extrahepatic biliary ducts. 2. Stomach, spleen, pancreas and adrenal glands unremarkable. Normal kidneys. Normal appendix RLQ. 3. No abdominal or pelvic mass lesion. No inflammatory "dirty" peritoneal fat. No mesenteric or retroperitoneal lymphadenopathy. No ventral wall hernias or signs of mechanical bowel obstruction. 4. No ascites or free intraperitoneal air. 5. Multilevel lower thoracic and lumbar disc disease with associated hypertrophic spondylosis. 6. Lung bases are clear. Normal cardiac silhouette. No pericardial or pleural effusion. CONCLUSION: Cholecystectomy. Hysterectomy. No intra-abdominal mass lesion, signs of mechanical bowel obstruction or acute peritonitis.
[2020-05-09] MEDS ORDERED: traMADol 50 MG Tab PO ONE (16:13)
[2020-05-09] MEDS ORDERED: Iopamidol 755 Mg/ML 100 ML Bottle IVPUSH ONE (16:43)
[2020-05-09] MEDS ORDERED: Iopamidol 612 MG/ML 100 ML Bottle IVPUSH ONE (16:45)
== END 2020-05-09 17:16 | disposition home or self-care (01) ==
LOC: DL.ED 13:19
DX: R07.89 Other chest pain (principal); F41.9 Anxiety disorder, unspecified; F17.210 Nicotine dependence, cigarettes, uncomplicated; E66.9 Obesity, unspecified; Z68.42 Body mass index [BMI] 45.0-49.9, adult; Z88.0 Allergy status to penicillin; Z88.6 Allergy status to analgesic agent; Z88.8 Allergy status to other drugs, medicaments and biological substances; Z88.1 Allergy status to other antibiotic agents; Z91.040 Latex allergy status; Z88.2 Allergy status to sulfonamides; Z91.013 Allergy to seafood; Z79.899 Other long term (current) drug therapy
CPT/HCPCS: 36415; 74177; 80053; 81003; 82150; 83690; 84484; 85025; 86140; 93005; 96372; 99285-25; A9270-GY; J1885; Q9967

== ENCOUNTER 2021-01-02 16:44 | Emergency (ER) | payer BC ==
[2021-01-02 17:09] VITALS: BP 125/78; PULSE 85
[2021-01-02] MEDS ORDERED: traMADol 50 MG Tab PO ONE (17:37)
--- NOTE | 2021-01-02 17:51 | CR ---
PROCEDURE INFORMATION: Exam: XR Left Knee Exam date and time: 01/02/2021 5:26 PM Age: 45 years old Clinical indication: Pain; Knee; Left; Additional info: R/O dislocation or fracture TECHNIQUE: Imaging protocol: XR Left knee. Views: 3 views. COMPARISON: CR Knee 3V Lt 04/21/2015 6:16 AM FINDINGS: Bones/joints: There is moderate narrowing and subchondral sclerosis of the patellofemoral joint with moderate inferior and superior spurs. In the sunrise view the patella articular surface is appropriately oriented with the anterior aspect of the femur. Orientation of the patella and distal femur is unchanged from the prior study. There is moderate peaking of the tibial spines. There are moderately large medial osteophytes. There is no evidence of acute fracture. There is no subluxation or dislocation. Soft tissues: Moderate joint effusion is suspect. IMPRESSION: 1. Probable knee joint effusion. 2. Progressive degenerative changes. 3. No fracture dislocation is seen
--- NOTE | 2021-01-02 17:55 | EDM.PDOC ---
ED HPI GENERAL MEDICAL PROBLEM - General Chief Complaint: Lower Extremity Injury/Pain Stated Complaint: LEFT KNEE SWOLLEN Time Seen by Provider: 01/02/21 17:25 Source of Information: Reports: Patient (r), RN, RN Notes Reviewed History Limitations: Reports: No Limitations - History of Present Illness INITIAL COMMENTS - FREE TEXT/NARRATIVE: Alexandria is a 45 y/o female who presents to the ED via personal vehicle with complaints of left knee pain. The patient reports her pain to this extremity precedes today's injury, as her pain in the knee is chronically a 6/10. She has underwent a scope three years ago and was told she requires a knee replacement. She notes she heard and felt her knee "pop" today while walking; she immediately felt sharp pain in the medial, inferior aspect of the knee. She notes this pain radiates into her thigh and down into her foot. She is unable to bear weight or flex the knee due to pain. She has taken no medications for her chronic or acute knee pain. She states she stopped taking ibuprofen three days ago as it no longer provides her alleviation of pain; her last dose was 800mg TID. Left Knee Pain Score (Numeric/FACES): 10 - Related Data Allergies Allergy/AdvReac Type Severity Reaction Status Date / Time Penicillins Allergy Mild Rash Verified 01/02/21 17:09 acetaminophen Allergy Liver Verified 01/02/21 17:09 Problems amoxicillin trihydrate Allergy Itching Verified 01/02/21 17:09 [From Augmentin] aspirin Allergy Nausea Verified 01/02/21 17:09 azithromycin [From Zithromax] Allergy Nausea and Verified 01/02/21 17:09 Vomiting cefdinir [Cefdinir] Allergy Hives Verified 01/02/21 17:09 erythromycin base Allergy Swelling Verified 01/02/21 17:09 latex Allergy Blisters Verified 01/02/21 17:09 penicillin G procaine Allergy Hives Verified 01/02/21 17:09 squid Allergy Anaphylactic Verified 01/02/21 17:09 Shock Sulfa (Sulfonamide Allergy Nausea and Verified 01/02/21 17:09 Antibiotics) Vomiting valdecoxib [From Bextra] Allergy Stomach Verified 01/02/21 17:09 Upset Home Meds: Home Meds Albuterol [Proair HFA] 2 puff INH Q4HR PRN 09/29/13 [History] diphenhydrAMINE [Benadryl] 25 mg PO DAILY PRN 08/17/18 [History] LORazepam [Lorazepam] 0.5 mg PO TID PRN 01/02/21 [History] Sertraline [Zoloft] 100 mg PO DAILY 01/02/21 [History] traZODone HCl [Trazodone HCl] 100 mg PO BEDTIME 01/02/21 [History] Past Medical History - Past Health History Medical/Surgical History: Denies Medical/Surgical History HEENT History: Reports: Otitis Media, Sinusitis, Other (See Below) Other HEENT History: nasal cyst right side Cardiovascular History: Reports: Blood Clots/VTE/DVT, Other (See Below) Other Cardiovascular History: edema Respiratory History: Reports: Other (See Below) Other Respiratory History: Environmental allergies Gastrointestinal History: Reports: Colon Polyp, Diverticulosis, Hemorrhoids, Irritable Bowel Syndrome, Other (See Below) Other Gastrointestinal History: "liver functions off" Genitourinary History: Reports: UTI, Recurrent, Other (See Below) Other Genitourinary History: Innersticial cystitis. "Kidney functions off" HERBOLOGIST History: Reports: Endometriosis, Fibroids, Polycystic Ovaries, Musculoskeletal History: Reports: Arthritis, Back Pain, Chronic, Fracture, Fibromyalgia, Neck Pain, Chronic, Osteoarthritis, RA, Other (See Below) Other Musculoskeletal History: Fx. wrist and feet. CARPAL TUNNEL SYNDROME Neurological History: Reports: Concussion, Migraines, Seizure, Vertigo Psychiatric History: Reports: Addiction, Anxiety, PTSD Endocrine/Metabolic History: Reports: Diabetes, Gestational, Obesity/BMI 30+ Hematologic History: Reports: Other (See Below) Other Hematologic History: Clotting problem at time of surgery AFTER HYSTERECTOMY Immunologic History: Reports: None Oncologic (Cancer) History: Reports: None Dermatologic History: Reports: Eczema, Other (See Below) Other Dermatologic History: MRSA. boils - Infectious Disease History Infectious Disease History: Reports: Chicken Pox, MRSA - Past Surgical History Head Surgeries/Procedures: Reports: None HEENT Surgical History: Reports: Oral Surgery Other HEENT Surgeries/Procedures: wisdom teeth removed Cardiovascular Surgical History: Reports: Other (See Below) Other Cardiovascular Surgeries/Procedures: HX OF ELECTROCARDIOGRAM 2010 Respiratory Surgical History: Reports: None GI Surgical History: Reports: Cholecystectomy, Colonoscopy Female Surgical History: Reports: Hysterectomy, Salpingo-Oophorectomy Endocrine Surgical History: Reports: None Neurological Surgical History: Reports: None Musculoskeletal Surgical History: Reports: Other (See Below) Other Musculoskeletal Surgeries/Procedures:: left knee cleaned out. FOOT PLANTAR FASCIA RELEASE RIGHT. FOOT SURGERY LEFT BONE CHIPS REMOVED. BUNIONECTOMY LEFT Oncologic Surgical History: Reports: None Dermatological Surgical History: Reports: None Social & Family History - Family History Family Medical History: No Pertinent Family History - Tobacco Use Tobacco Use Status *Q: Current Every Day Tobacco User Years of Tobacco use: 31 Packs/Tins Daily: 1 - Caffeine Use Caffeine Use: Reports: Coffee, Energy Drinks Other Caffeine Use: AVERAGE OF COUPLE COFFEE PER DAY, NO FURTHER ENERGY DRINKS - Recreational Drug Use Recreational Drug Use: No - Sexual History Sexual History: Reports: None. Denies: Sexually Active - Living Situation & Occupation Living situation: Reports: with Family Occupation: Employed Review of Systems - Review of Systems Review Of Systems: Comprehensive ROS is negative, except as noted in HPI. ED EXAM, GENERAL - Physical Exam Exam: See Below Exam Limited By: No Limitations General Appearance: Alert, Mild Distress (Tearful from knee pain), Obese Eye Exam: Bilateral Eye: EOMI, Normal Inspection, PERRL (3mm) Ears: Normal External Exam, Hearing Grossly Normal Nose: Normal Inspection, Normal Mucosa, No Blood Throat/Mouth: Normal Inspection, Normal Oropharynx, Normal Voice, No Airway Compromise Head: Atraumatic, Normocephalic Neck: Normal Inspection, Supple, Non-Tender, Full Range of Motion Respiratory/Chest: No Respiratory Distress, Lungs Clear, Normal Breath Sounds, No Accessory Muscle Use, Chest Non-Tender Cardiovascular: Normal Peripheral Pulses, Regular Rate, Rhythm, No Edema, No Gallop, No JVD, No Murmur, No Rub Peripheral Pulses: 2+: Radial (L), Radial (R), Dorsalis Pedis (L), Dorsalis Pedis (R) GI/Abdominal: Normal Bowel Sounds, Soft, Non-Tender, No Distention, No Abnormal Bruit, No Mass, Pelvis Stable (Female) Exam: Deferred Rectal (Female) Exam: Deferred Extremities: Leg Pain (To left anterior medial, inferior knee), Limited Range of Motion (Pain with weight bearing and flexion/extension). No: Increased Warmth, Mottled, Pallor, Redness Neurological: Alert, Oriented, CN II-XII Intact, Normal Cognition, No Motor/Sensory Deficits, Abnormal Gait (Pain with ambulation) Psychiatric: Normal Affect, Normal Mood Skin Exam: Warm, Dry, Intact, Normal Color, No Rash. No: Cyanosis, Erythema, Jaundice, Mottled, Pallor, Petechiae Course - Vital Signs Last Recorded V/S: Last Vital Signs Temp 98.1 F 01/02/21 17:00 Pulse 85 01/02/21 17:00 Resp 20 01/02/21 17:00 BP 125/78 01/02/21 17:00 Pulse Ox 98 01/02/21 17:00 - Orders/Labs/Meds Meds: Medications Discontinued Medications Generic Name Dose Route Start Last Admin Trade Name Freq PRN Reason Stop Dose Admin Tramadol HCl 50 mg 01/02/21 17:37 01/02/21 17:45 Tramadol 50 Mg Tab PO 01/02/21 17:38 50 mg ONETIME ONE Administration - Radiology Interpretation Free Text/Narrative:: [facility] Final Radiology Report Call: [phone] assistance Online chat: [email or web address] Name: ALEXANDRIA LANIER Age: 45Years F Date: 01/02/2021 SSN: -- : [id number] Study: CR KNEE 3V LT Requesting Physician: No Mack Images: 3 Addl Studies: Provided Clinical History: r/o dislocation or fracture Contrast: Contrast Medium: Contrast Amount: Contrast Method: CONFIDENTIALITY STATEMENT This report is intended only for use by the referring physician, and only in accordance with law. If you received this in error, call [phone]. Page 1 of 1 PROCEDURE INFORMATION: Exam: XR Left Knee Exam date and time: 01/02/2021 5:26 PM Age: 45 years old Clinical indication: Pain; Knee; Left; Additional info: R/O dislocation or fracture TECHNIQUE: Imaging protocol: XR Left knee. Views: 3 views. COMPARISON: CR Knee 3V Lt 04/21/2015 6:16 AM FINDINGS: Bones/joints: There is moderate narrowing and subchondral sclerosis of the patellofemoral joint with moderate inferior and superior spurs. In the sunrise view the patella articular surface is appropriately oriented with the anterior aspect of the femur. Orientation of the patella and distal femur is unchanged from the prior study. There is moderate peaking of the tibial spines. There are moderately large medial osteophytes. There is no evidence of acute fracture. There is no subluxation or dislocation. Soft tissues: Moderate joint effusion is suspect. IMPRESSION: 1. Probable knee joint effusion. 2. Progressive degenerative changes. 3. No fracture dislocation is seen Thank you for allowing us to participate in the care of your patient. Dictated and Authenticated by: Duane Carranza MD 01/02/2021 5:50 PM Central Time ([place] & [place]) - Re-Assessments/Exams Free Text/Narrative Re-Assessment/Exam: 01/02/21 Xray of left knee obtained. Findings of examination and imaging reviewed with patient. Will treat acute pain with Ultram 50mg. Patient instructed to follow up with PCP regarding bone spurs, effusion, and ongoing management of chronic knee pain. Red flag signs and symptoms which would warrant reevaluation reviewed. Patient verbalized u nderstanding and agreement with the plan of care. Departure - Departure Time of Disposition: 18:02 Disposition: Home, Self-Care 01 Condition: Fair Clinical Impression: Subchondral sclerosis, Bone spur, Left anterior knee pain - Discharge Information *PRESCRIPTION DRUG MONITORING PROGRAM REVIEWED*: Not Applicable *COPY OF PRESCRIPTION DRUG MONITORING REPORT IN PATIENT BETSY: Not Applicable Instructions: Acute Knee Pain, Adult Referrals: Karen Healy MD [Primary Care Provider] - Forms: ED Department Discharge Additional Instructions: Rx: Ultram 1.) Follow up with your primary care provider in 3-5 days regarding today's visit. 2.) You may continue taking ibuprofen (Motrin) 600mg, ever six hours as pain persists, in addition to the Ultram. 3.) You may alternate heat and ice to the knee as pain and swelling persist. 4.) You may wear a compression sleeve to the joint for stability and comfort. Sepsis Event Note (ED) - Evaluation Sepsis Screening Result: No Definite Risk
== END 2021-01-02 18:18 | disposition home or self-care (01) ==
LOC: DL.ED 16:44
DX: M25.562 Pain in left knee (principal); M85.89 Other specified disorders of bone density and structure, multiple sites; E66.9 Obesity, unspecified; Z72.0 Tobacco use; Z88.0 Allergy status to penicillin; Z88.6 Allergy status to analgesic agent; Z91.040 Latex allergy status; Z88.2 Allergy status to sulfonamides; Z91.013 Allergy to seafood; Z88.1 Allergy status to other antibiotic agents; Z86.718 Personal history of other venous thrombosis and embolism; Z68.43 Body mass index [BMI] 50.0-59.9, adult
CPT/HCPCS: 73562-LT; 99283; 99283-25; A9270-GY

== ENCOUNTER 2021-03-08 22:47 | Emergency (ER) | payer SELFPAY ==
[2021-03-08] MEDS ORDERED: Sodium Chloride 0.9% 10 ML Syringe FLUSH PRN (23:09)
[2021-03-08] MEDS ORDERED: MVI, Adult with Vitamin K 10 ML, Folic Acid 1 MG, Thiamine 100 MG in Lactated Ringers 1... IV ONE ×4 (23:10)
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
[2021-03-08 23:39] LABS: ANION GAP 18.1 mEq/L (7-13); CHLORIDE,CL 106 mmol/L (98-107); SODIUM,NA 144 mmol/L (136-145)
[2021-03-08 23:44] LABS: ACETAMINOPHEN 0 ug/mL (10-30 (Therapeutic))
[2021-03-09 00:47] LABS: AMPHETAMINES,URINE NEGATIVE (NEGATIVE); BARBITURATES,URINE NEGATIVE (NEGATIVE); BENZODIAZEPINE,URINE NEGATIVE (NEGATIVE); MDMA (ECSTASY), URINE NEGATIVE (NEGATIVE); METHADONE,URINE NEGATIVE (NEGATIVE); METHAMPHETAMINES,URINE NEGATIVE (NEGATIVE); OPIATES,URINE NEGATIVE (NEGATIVE); OXYCODONE,URINE NEGATIVE (NEGATIVE); PHENCYCLIDINE,URINE NEGATIVE (NEGATIVE); TCA,URINE NEGATIVE (NEGATIVE)
[2021-03-09 01:42] VITALS: BP 74/52; PULSE 62
== END 2021-03-09 01:32 | disposition home or self-care (01) ==
LOC: DL.ED 22:47
DX: F10.120 Alcohol abuse with intoxication, uncomplicated (principal); M19.90 Unspecified osteoarthritis, unspecified site; E66.9 Obesity, unspecified; Z68.43 Body mass index [BMI] 50.0-59.9, adult; Z88.0 Allergy status to penicillin; Z88.2 Allergy status to sulfonamides; Z88.8 Allergy status to other drugs, medicaments and biological substances; Z88.6 Allergy status to analgesic agent; Z88.1 Allergy status to other antibiotic agents; Z91.040 Latex allergy status; Z91.018 Allergy to other foods; Z79.899 Other long term (current) drug therapy; Y90.8 Blood alcohol level of 240 mg/100 ml or more
CPT/HCPCS: 36415; 80053; 80143; 80179; 80305; 80307; 82947; 85025; 96365; 99285; J3411; J7120; J3490

== ENCOUNTER 2021-07-29 11:19 | Emergency (ER) | payer SELFPAY ==
[2021-07-29 16:29] VITALS: BP 108/55; PULSE 50
[2021-07-29] MEDS ORDERED: Cyclobenzaprine 10 MG Tab PO ONE (17:13)
== END 2021-07-29 17:32 | disposition home or self-care (01) ==
LOC: DL.ED 11:19
DX: M17.12 Unilateral primary osteoarthritis, left knee (principal); M19.072 Primary osteoarthritis, left ankle and foot; E66.9 Obesity, unspecified; Z68.30 Body mass index [BMI] 30.0-30.9, adult; Z72.0 Tobacco use; Z88.0 Allergy status to penicillin; Z88.1 Allergy status to other antibiotic agents; Z88.8 Allergy status to other drugs, medicaments and biological substances; Z88.2 Allergy status to sulfonamides; Z91.040 Latex allergy status
CPT/HCPCS: 73562-LT; 73630-LT; 99283-25

== ENCOUNTER 2021-12-02 11:27 | Emergency (ER) | payer SELFPAY ==
[2021-12-02] MEDS ORDERED: Ondansetron 4 MG Tab.DIS PO ONE (11:33)
[2021-12-02] MEDS ORDERED: Sodium Chloride 0.9% 10 ML Syringe FLUSH PRN (11:34)
[2021-12-02 11:38] VITALS: PULSE 80
[2021-12-02 12:45] LABS: ANION GAP 12.8 mEq/L (7-13)
[2021-12-02] MEDS ORDERED: GI Cocktail Oral Solution 30 ML PO ONE (14:38)
[2021-12-02] MEDS ORDERED: Ketorolac 30 MG/ML SDV IM ONE (15:16)
== END 2021-12-02 15:32 | disposition home or self-care (01) ==
LOC: DL.ED 11:27
DX: R07.89 Other chest pain (principal); R11.2 Nausea with vomiting, unspecified; F17.210 Nicotine dependence, cigarettes, uncomplicated; F41.9 Anxiety disorder, unspecified; E66.9 Obesity, unspecified; Z68.43 Body mass index [BMI] 50.0-59.9, adult; Z88.8 Allergy status to other drugs, medicaments and biological substances; Z88.2 Allergy status to sulfonamides; Z88.6 Allergy status to analgesic agent; Z91.040 Latex allergy status; Z88.5 Allergy status to narcotic agent; Z88.0 Allergy status to penicillin; Z91.013 Allergy to seafood
CPT/HCPCS: 36415; 71045; 80053; 81003; 82150; 83690; 84484; 85025; 93005; 93010; 96372; 99284; 99285-25; A9270-GY; J1885

== ENCOUNTER 2021-12-19 14:39 | Emergency (ER) | payer OTHER ==
[2021-12-19 14:50] VITALS: BP 126/64; PULSE 81
== END 2021-12-19 15:13 | disposition home or self-care (01) ==
LOC: DL.ED 14:39
DX: S60.052A Contusion of left little finger without damage to nail, initial encounter (principal); F17.210 Nicotine dependence, cigarettes, uncomplicated; E66.9 Obesity, unspecified; Z68.30 Body mass index [BMI] 30.0-30.9, adult; Z88.0 Allergy status to penicillin; Z88.6 Allergy status to analgesic agent; Z88.1 Allergy status to other antibiotic agents; Z91.040 Latex allergy status; Z88.2 Allergy status to sulfonamides; Z91.013 Allergy to seafood; Z79.899 Other long term (current) drug therapy; Z90.49 Acquired absence of other specified parts of digestive tract; Z90.710 Acquired absence of both cervix and uterus; W23.1XXA Caught, crushed, jammed, or pinched between stationary objects, initial encounter
CPT/HCPCS: 73120-LT; 99283

== ENCOUNTER 2022-01-11 19:11 | Emergency (ER) | payer OTHER ==
[2022-01-11 19:34] VITALS: BP 134/86; PULSE 98
== END 2022-01-11 21:14 | disposition home or self-care (01) ==
LOC: DL.ED 19:11
DX: S93.402A Sprain of unspecified ligament of left ankle, initial encounter (principal); E66.9 Obesity, unspecified; Z68.42 Body mass index [BMI] 45.0-49.9, adult; Z88.0 Allergy status to penicillin; Z88.1 Allergy status to other antibiotic agents; Z91.040 Latex allergy status; Z88.8 Allergy status to other drugs, medicaments and biological substances; Z88.2 Allergy status to sulfonamides; X50.1XXA Overexertion from prolonged static or awkward postures, initial encounter
CPT/HCPCS: 73610-RT; 99282; 99283

== ENCOUNTER 2022-01-29 21:42 | Emergency (ER) | payer OTHER ==
[2022-01-30] MEDS ORDERED: traMADol 50 MG Tab PO ONE (03:05)
[2022-01-30] MEDS ORDERED: Cyclobenzaprine 10 MG Tab PO ONE (03:05)
[2022-01-30 03:30] VITALS: BP 113/70; PULSE 66
== END 2022-01-30 03:30 | disposition home or self-care (01) ==
LOC: DL.ED 21:42
DX: S46.912A Strain of unspecified muscle, fascia and tendon at shoulder and upper arm level, left arm, initial encounter (principal); E66.9 Obesity, unspecified; Z68.42 Body mass index [BMI] 45.0-49.9, adult; Z88.0 Allergy status to penicillin; Z88.2 Allergy status to sulfonamides; Z88.1 Allergy status to other antibiotic agents; Z88.8 Allergy status to other drugs, medicaments and biological substances; Z91.040 Latex allergy status; X50.0XXA Overexertion from strenuous movement or load, initial encounter
CPT/HCPCS: 73030-LT; 99282; 99283

== ENCOUNTER 2024-03-06 16:34 | Emergency (ER) | payer MEDICAID, OTHER ==
[2024-03-06 17:17] LABS: BASOPHILS PERCENT AUTO 0.3 % (0.0-1.0); EOSINOPHILS PERCENT AUTO 4.7 % (1.0-3.0); HEMATOCRIT 40.2 % (37.0-47.0); HEMOGLOBIN 12.6 g/dL (12.0-16.0); LYMPHOCYTES PERCENT AUTO 31.7 % (20.5-50.1); MEAN CORPUSCULAR HEMOGLOBIN 28.3 pg (27.0-34.0); MEAN CORPUSCULAR HGB CONC 31.3 g/dL (33.0-35.0); MEAN CORPUSCULAR VOLUME 90.3 fL (80-100); MONOCYTES PERCENT AUTO 6.1 % (2-8); NEUTROPHILS PERCENT AUTO 57.2 % (42.2-75.2); PLATELET COUNT,PLT 267 10^3/uL (150-450); RED BLOOD CELL COUNT 4.45 10^6/uL (4.2-5.4); WHITE BLOOD CELL COUNT,WBC 7.3 10^3/uL (5.0-10.0)
[2024-03-06 17:21] VITALS: BP 109/59; PULSE 65
[2024-03-06 17:36] LABS: A/G RATIO 0.9; ALBUMIN 3.7 g/dL (3.4-5.0); ANION GAP 12.4 mEq/L (7-13); BILIRUBIN TOTAL 0.3 mg/dL (0.2-1.0); CALCIUM 9.4 mg/dL (8.5-10.1); CREATININE 1.08 mg/dL (0.55-1.02); EST CRCL DRUG DOSING (CG) 58.57 mL/min; MAGNESIUM 2.3 mg/dL (1.8-2.4); POTASSIUM,K 4.4 mmol/L (3.5-5.1); PROTEIN TOTAL,TP 7.8 g/dL (6.4-8.2)
[2024-03-06] MEDS: Ketorolac 30 MG/ML SDV IVPUSH ONE (17:54)
[2024-03-06 17:55] LABS: APPEARANCE,URINE CLEAR (CLEAR); BILIRUBIN,URINE NEGATIVE (NEGATIVE); COLOR,URINE YELLOW (YELLOW); GLUCOSE,URINE NEGATIVE (NEGATIVE); KETONES,URINE NEGATIVE (NEGATIVE); LEUKOCYTE ESTERASE,URINE NEGATIVE (NEGATIVE); NITRITE,URINE NEGATIVE (NEGATIVE); OCCULT BLOOD,URINE NEGATIVE (NEGATIVE); PROTEIN,URINE NEGATIVE (NEGATIVE); UROBILINOGEN,URINE 0.2 mg/dL (0.2-1.0)
[2024-03-06] MEDS: Sodium Chloride 0.9% 1,000 ML IV ONE (17:55)
[2024-03-06] MEDS ORDERED: Bupivacaine 0.5% 30 ML SDV ONE ×2 (18:30→19:17)
== END 2024-03-06 20:13 | disposition home or self-care (01) ==
LOC: DL.ED 16:34
DX: M54.42 Lumbago with sciatica, left side (principal); M53.3 Sacrococcygeal disorders, not elsewhere classified; M16.12 Unilateral primary osteoarthritis, left hip; E66.9 Obesity, unspecified; F17.200 Nicotine dependence, unspecified, uncomplicated; Z79.899 Other long term (current) drug therapy; Z88.0 Allergy status to penicillin; Z88.1 Allergy status to other antibiotic agents; Z88.2 Allergy status to sulfonamides; Z88.5 Allergy status to narcotic agent; Z88.8 Allergy status to other drugs, medicaments and biological substances; Z91.040 Latex allergy status; Z68.43 Body mass index [BMI] 50.0-59.9, adult
CPT/HCPCS: 20552; 36415; 72131; 80053; 81003; 83735; 85025; 96361; 96374; 99284; J1885; J7030

== ENCOUNTER 2024-03-25 11:50 | Emergency (ER) | payer MEDICAID, OTHER ==
[2024-03-25] MEDS ORDERED: Sodium Chloride 0.9% 10 ML Syringe FLUSH PRN (12:09)
[2024-03-25 12:14] VITALS: BP 125/83; PULSE 78
[2024-03-25 12:26] LABS: BASOPHILS PERCENT AUTO 0.4 % (0.0-1.0); EOSINOPHILS PERCENT AUTO 2.9 % (1.0-3.0); LYMPHOCYTES PERCENT AUTO 24.3 % (20.5-50.1); MEAN CORPUSCULAR HEMOGLOBIN 28.3 pg (27.0-34.0); MEAN CORPUSCULAR HGB CONC 31.7 g/dL (33.0-35.0); MEAN CORPUSCULAR VOLUME 89.1 fL (80-100); MONOCYTES PERCENT AUTO 7.1 % (2-8); NEUTROPHILS PERCENT AUTO 65.3 % (42.2-75.2); PLATELET COUNT,PLT 305 10^3/uL (150-450); WHITE BLOOD CELL COUNT,WBC 8.4 10^3/uL (5.0-10.0)
[2024-03-25 12:43] LABS: INR 0.9 (0.9-1.2); PROTHROMBIN TIME 9.3 SEC (9.0-12.0)
[2024-03-25 12:50] LABS: A/G RATIO 0.9; ALANINE AMINOTRANSFERASE,ALT 19 U/L (14-59); ALBUMIN 3.7 g/dL (3.4-5.0); ALKALINE PHOSPHATASE 109 U/L (46-116); ANION GAP 14.2 mEq/L (7-13); ASPARTATE AMNIOTRANSFERASE,AST 10 U/L (15-37); BILIRUBIN TOTAL 0.2 mg/dL (0.2-1.0); BLOOD UREA NITROGEN,BUN 18 mg/dL (7-18); BUN/CREATININE RATIO 18.6 (No establ ref range); CALCIUM 9.4 mg/dL (8.5-10.1); CARBON DIOXIDE,CO2 25 mmol/L (21-32); CHLORIDE,CL 106 mmol/L (98-107); CREATININE 0.97 mg/dL (0.55-1.02); EST CRCL DRUG DOSING (CG) 65.21 mL/min; GLUCOSE RANDOM 100 mg/dL (70-99); MAGNESIUM 2.1 mg/dL (1.8-2.4); POTASSIUM,K 4.2 mmol/L (3.5-5.1); SODIUM,NA 141 mmol/L (136-145)
[2024-03-25 12:56] LABS: ESTIMATED GFR 73 mL/min (>=60)
[2024-03-25] MEDS: Midodrine 5 MG Tab PO ONE (13:30)
== END 2024-03-25 14:01 | disposition home or self-care (01) ==
LOC: DL.ED 11:50
DX: R42 Dizziness and giddiness (principal); E66.9 Obesity, unspecified; Z90.49 Acquired absence of other specified parts of digestive tract; Z90.710 Acquired absence of both cervix and uterus; Z79.899 Other long term (current) drug therapy; Z88.2 Allergy status to sulfonamides; Z88.0 Allergy status to penicillin; Z91.040 Latex allergy status; Z88.8 Allergy status to other drugs, medicaments and biological substances; Z88.1 Allergy status to other antibiotic agents
CPT/HCPCS: 36415; 70450; 80053; 83735; 84484; 85025; 85610; 87635; 87804; 93005; 99284; A9270; U0002

== ENCOUNTER 2024-04-28 22:30 | Emergency (ER) | payer MEDICAID, OTHER ==
[2024-04-28 21:49] LABS: BASOPHILS PERCENT AUTO 0.3 % (0.0-1.0); EOSINOPHILS PERCENT AUTO 3.8 % (1.0-3.0); HEMATOCRIT 38.3 % (37.0-47.0); HEMOGLOBIN 12.2 g/dL (12.0-16.0); LYMPHOCYTES PERCENT AUTO 26.1 % (20.5-50.1); MEAN CORPUSCULAR HEMOGLOBIN 28.2 pg (27.0-34.0); MEAN CORPUSCULAR HGB CONC 31.9 g/dL (33.0-35.0); MEAN CORPUSCULAR VOLUME 88.7 fL (80-100); MONOCYTES PERCENT AUTO 6.5 % (2-8); NEUTROPHILS PERCENT AUTO 63.3 % (42.2-75.2); PLATELET COUNT,PLT 290 10^3/uL (150-450); RED BLOOD CELL COUNT 4.32 10^6/uL (4.2-5.4); WHITE BLOOD CELL COUNT,WBC 9.4 10^3/uL (5.0-10.0)
[2024-04-28] MEDS: Ketorolac 30 MG/ML SDV IVPUSH ONE (21:59)
[2024-04-28 22:10] LABS: ALBUMIN 3.2 g/dL (3.4-5.0); ANION GAP 14.1 mEq/L (7-13); BILIRUBIN TOTAL 0.3 mg/dL (0.2-1.0); BUN/CREATININE RATIO 18.3 (No establ ref range); CREATININE 1.15 mg/dL (0.55-1.02); POTASSIUM,K 4.1 mmol/L (3.5-5.1); PROTEIN TOTAL,TP 7.1 g/dL (6.4-8.2)
[2024-04-28 22:11] LABS: A/G RATIO 0.82
[2024-04-28 22:20] LABS: APPEARANCE,URINE CLEAR (CLEAR); BILIRUBIN,URINE NEGATIVE (NEGATIVE); COLOR,URINE YELLOW (YELLOW); GLUCOSE,URINE NEGATIVE (NEGATIVE); KETONES,URINE NEGATIVE (NEGATIVE); LEUKOCYTE ESTERASE,URINE NEGATIVE (NEGATIVE); NITRITE,URINE NEGATIVE (NEGATIVE); OCCULT BLOOD,URINE NEGATIVE (NEGATIVE); PROTEIN,URINE NEGATIVE (NEGATIVE); UROBILINOGEN,URINE 0.2 mg/dL (0.2-1.0)
[2024-04-28] MEDS: Sodium Chloride 0.9% 1,000 ML IV ONE (22:53)
[2024-04-28] MEDS: Acetaminophen 325 MG Tab PO ONE (23:45)
[2024-04-28] MEDS: Orphenadrine 60 MG/2 ML Inj IM ONE (23:46)
[2024-04-29] MEDS: Dexamethasone 4 MG/ML SDV IM ONE (00:19)
[2024-04-29 00:35] VITALS: BP 102/78; PULSE 88
== END 2024-04-29 00:46 | disposition home or self-care (01) ==
LOC: DL.ED 22:30
DX: S39.012A Strain of muscle, fascia and tendon of lower back, initial encounter (principal); N17.9 Acute kidney failure, unspecified; E66.9 Obesity, unspecified; F17.210 Nicotine dependence, cigarettes, uncomplicated; Z86.16 Personal history of COVID-19; Z90.49 Acquired absence of other specified parts of digestive tract; Z90.710 Acquired absence of both cervix and uterus; Z88.0 Allergy status to penicillin; Z88.1 Allergy status to other antibiotic agents; Z88.2 Allergy status to sulfonamides; Z88.6 Allergy status to analgesic agent; Z88.8 Allergy status to other drugs, medicaments and biological substances; Z91.040 Latex allergy status; Z79.51 Long term (current) use of inhaled steroids; Z79.899 Other long term (current) drug therapy; X58.XXXA Exposure to other specified factors, initial encounter; Z68.43 Body mass index [BMI] 50.0-59.9, adult
CPT/HCPCS: 36415; 72131; 80053; 81003; 83735; 85025; 96372; 99284; A9270; J1100; J1885; J2360; J7030

== ENCOUNTER 2024-07-04 09:57 | Emergency (ER) | payer OTHER, MEDICAID ==
[2024-07-04] MEDS: Ondansetron 4 MG/2 ML SDV IVPUSH ONE (10:47)
[2024-07-04] MEDS: Lactated Ringers 1,000 ML IV ONE (10:47)
[2024-07-04 10:50] LABS: BASOPHILS PERCENT AUTO 0.2 % (0.0-1.0); EOSINOPHILS PERCENT AUTO 1.9 % (1.0-3.0); HEMATOCRIT 42.2 % (37.0-47.0); HEMOGLOBIN 13.3 g/dL (12.0-16.0); LYMPHOCYTES PERCENT AUTO 22.6 % (20.5-50.1); MEAN CORPUSCULAR HEMOGLOBIN 27.1 pg (27.0-34.0); MEAN CORPUSCULAR HGB CONC 31.5 g/dL (33.0-35.0); MEAN CORPUSCULAR VOLUME 85.9 fL (80-100); MONOCYTES PERCENT AUTO 5.7 % (2-8); NEUTROPHILS PERCENT AUTO 69.6 % (42.2-75.2); PLATELET COUNT,PLT 287 10^3/uL (150-450); RED BLOOD CELL COUNT 4.91 10^6/uL (4.2-5.4); WHITE BLOOD CELL COUNT,WBC 8.6 10^3/uL (5.0-10.0)
[2024-07-04 11:17] LABS: A/G RATIO 0.9; ALANINE AMINOTRANSFERASE,ALT 24 U/L (14-59); ALBUMIN 3.8 g/dL (3.4-5.0); ALKALINE PHOSPHATASE 92 U/L (46-116); ASPARTATE AMNIOTRANSFERASE,AST 12 U/L (15-37); BILIRUBIN TOTAL 0.4 mg/dL (0.2-1.0); BLOOD UREA NITROGEN,BUN 11 mg/dL (7-18); BUN/CREATININE RATIO 11.8 (No establ ref range); CALCIUM 9.3 mg/dL (8.5-10.1); CARBON DIOXIDE,CO2 25 mmol/L (21-32); CHLORIDE,CL 107 mmol/L (98-107); CREATININE 0.93 mg/dL (0.55-1.02); GLUCOSE RANDOM 123 mg/dL (70-99); PROTEIN TOTAL,TP 7.9 g/dL (6.4-8.2); SODIUM,NA 143 mmol/L (136-145)
[2024-07-04 11:18] LABS: ESTIMATED GFR 77 mL/min (>=60)
[2024-07-04 12:51] VITALS: BP 121/59; PULSE 58
== END 2024-07-04 12:48 | disposition home or self-care (01) ==
LOC: DL.ED 09:57
DX: R19.7 Diarrhea, unspecified (principal); E66.9 Obesity, unspecified; Z86.16 Personal history of COVID-19; Z79.899 Other long term (current) drug therapy; Z88.2 Allergy status to sulfonamides; Z88.8 Allergy status to other drugs, medicaments and biological substances; Z88.0 Allergy status to penicillin; Z88.1 Allergy status to other antibiotic agents; Z88.5 Allergy status to narcotic agent; Z91.040 Latex allergy status
CPT/HCPCS: 36415; 80053; 85025; 96361; 96374; 99284; J2405; J7120

== ENCOUNTER 2024-07-16 10:16 | Emergency (ER) | payer MEDICAID ==
[2024-07-16] MEDS: Gabapentin 400 MG Cap PO ONE (11:03)
[2024-07-16] MEDS: Gabapentin 300 MG Cap ONE (11:04)
[2024-07-16] MEDS: Gabapentin 300 MG Cap PO ONE (11:05)
[2024-07-16] MEDS: Orphenadrine 60 MG/2 ML Inj IM ONE (11:26)
[2024-07-16 11:56] VITALS: BP 105/62; PULSE 68
== END 2024-07-16 11:50 | disposition home or self-care (01) ==
LOC: DL.ED 10:16
DX: S39.012A Strain of muscle, fascia and tendon of lower back, initial encounter (principal); M51.360 Other intervertebral disc degeneration, lumbar region with discogenic back pain only; E66.9 Obesity, unspecified; Z86.16 Personal history of COVID-19; Z90.49 Acquired absence of other specified parts of digestive tract; Z90.710 Acquired absence of both cervix and uterus; Z88.0 Allergy status to penicillin; Z88.2 Allergy status to sulfonamides; Z88.1 Allergy status to other antibiotic agents; Z88.6 Allergy status to analgesic agent; Z88.5 Allergy status to narcotic agent; Z88.8 Allergy status to other drugs, medicaments and biological substances; Z91.013 Allergy to seafood; Z91.040 Latex allergy status; Z79.51 Long term (current) use of inhaled steroids; Z79.899 Other long term (current) drug therapy; X58.XXXA Exposure to other specified factors, initial encounter
CPT/HCPCS: 72131; 96372; 99284; A9270-GY; J2360

== ENCOUNTER 2024-08-05 15:44 | Emergency (ER) | payer MEDICAID ==
[2024-08-05 16:04] VITALS: BP 118/73; PULSE 70
[2024-08-05] MEDS: Aspirin 81 MG Tab.Chew PO ONE (16:37)
[2024-08-05] MEDS: Famotidine 20 MG/2 ML SDV IVPUSH ONE (16:37)
[2024-08-05 16:45] LABS: BASOPHILS PERCENT AUTO 0.2 % (0.0-1.0); HEMATOCRIT 41.3 % (37.0-47.0); HEMOGLOBIN 13.2 g/dL (12.0-16.0); LYMPHOCYTES PERCENT AUTO 28.5 % (20.5-50.1); MEAN CORPUSCULAR VOLUME 84.5 fL (80-100); MONOCYTES PERCENT AUTO 6.5 % (2-8); NEUTROPHILS PERCENT AUTO 61.8 % (42.2-75.2); PLATELET COUNT,PLT 321 10^3/uL (150-450); RED BLOOD CELL COUNT 4.89 10^6/uL (4.2-5.4); WHITE BLOOD CELL COUNT,WBC 11.5 10^3/uL (5.0-10.0)
[2024-08-05 16:53] LABS: INR 0.9 (0.9-1.2); PROTHROMBIN TIME 9.7 SEC (9.0-12.0)
[2024-08-05 16:58] LABS: ANION GAP 14.8 mEq/L (7-13); CALCIUM 9.7 mg/dL (8.5-10.1); CREATININE 1.05 mg/dL (0.55-1.02); EST CRCL DRUG DOSING (CG) 60.24 mL/min; POTASSIUM,K 3.8 mmol/L (3.5-5.1)
[2024-08-05] MEDS: GI Cocktail Oral Solution 30 ML PO ONE (17:24)
== END 2024-08-05 18:10 | disposition home or self-care (01) ==
LOC: DL.ED 15:44
DX: M94.0 Chondrocostal junction syndrome [Tietze] (principal); E66.9 Obesity, unspecified; Z88.0 Allergy status to penicillin; Z88.1 Allergy status to other antibiotic agents; Z88.2 Allergy status to sulfonamides; Z88.8 Allergy status to other drugs, medicaments and biological substances; Z79.899 Other long term (current) drug therapy; Z68.43 Body mass index [BMI] 50.0-59.9, adult
CPT/HCPCS: 36415; 71045; 80048; 82947; 84484; 85025; 85610; 93005; 93010; 96374; 99284; 99285-25; A9270-GY

== ENCOUNTER 2024-08-11 12:29 | Emergency (ER) | payer MEDICAID ==
[2024-08-11] MEDS ORDERED: Sodium Chloride 0.9% 10 ML Syringe FLUSH PRN (13:05)
[2024-08-11] MEDS: Ketorolac 30 MG/ML SDV IVPUSH ONE (13:19)
[2024-08-11] MEDS: Lactated Ringers 1,000 ML IV ONE (13:19)
[2024-08-11 13:30] LABS: BASOPHILS PERCENT AUTO 0.3 % (0.0-1.0); EOSINOPHILS PERCENT AUTO 2.7 % (1.0-3.0); HEMATOCRIT 41.6 % (37.0-47.0); HEMOGLOBIN 12.7 g/dL (12.0-16.0); LYMPHOCYTES PERCENT AUTO 38.5 % (20.5-50.1); MEAN CORPUSCULAR HEMOGLOBIN 26.5 pg (27.0-34.0); MEAN CORPUSCULAR HGB CONC 30.5 g/dL (33.0-35.0); MEAN CORPUSCULAR VOLUME 86.8 fL (80-100); MONOCYTES PERCENT AUTO 6.5 % (2-8); PLATELET COUNT,PLT 331 10^3/uL (150-450); RED BLOOD CELL COUNT 4.79 10^6/uL (4.2-5.4); WHITE BLOOD CELL COUNT,WBC 18.6 10^3/uL (5.0-10.0)
[2024-08-11 13:41] LABS: ANION GAP 16.1 mEq/L (7-13); BLOOD UREA NITROGEN,BUN 16 mg/dL (7-18); CALCIUM 9.2 mg/dL (8.5-10.1); CARBON DIOXIDE,CO2 26 mmol/L (21-32); CHLORIDE,CL 107 mmol/L (98-107); CREATININE 1.08 mg/dL (0.55-1.02); ESTIMATED GFR 64 mL/min (>=60); GLUCOSE RANDOM 94 mg/dL (70-99); MAGNESIUM 2.2 mg/dL (1.8-2.4); POTASSIUM,K 4.1 mmol/L (3.5-5.1); SODIUM,NA 145 mmol/L (136-145)
== END 2024-08-11 14:01 | disposition home or self-care (01) ==
LOC: DL.ED 12:29
DX: R55 Syncope and collapse (principal); R51.9 Headache, unspecified; Z86.16 Personal history of COVID-19; Z90.49 Acquired absence of other specified parts of digestive tract; Z90.710 Acquired absence of both cervix and uterus; Z88.0 Allergy status to penicillin; Z88.1 Allergy status to other antibiotic agents; Z88.2 Allergy status to sulfonamides; Z88.6 Allergy status to analgesic agent; Z88.8 Allergy status to other drugs, medicaments and biological substances; Z91.040 Latex allergy status; Z91.013 Allergy to seafood; Z79.51 Long term (current) use of inhaled steroids; Z79.899 Other long term (current) drug therapy
CPT/HCPCS: 36415; 80048; 83735; 85025; 96361; 96374; 99284; J1885; J7120

== ENCOUNTER 2024-09-08 15:46 | Emergency (ER) | payer MEDICAID ==
[2024-09-08 16:28] VITALS: BP 117/56; PULSE 87
[2024-09-08 16:28] LABS: BASOPHILS PERCENT AUTO 0.3 % (0.0-1.0); EOSINOPHILS PERCENT AUTO 2.7 % (1.0-3.0); HEMATOCRIT 41.1 % (37.0-47.0); HEMOGLOBIN 12.7 g/dL (12.0-16.0); LYMPHOCYTES PERCENT AUTO 25.9 % (20.5-50.1); MEAN CORPUSCULAR HEMOGLOBIN 26.6 pg (27.0-34.0); MEAN CORPUSCULAR HGB CONC 30.9 g/dL (33.0-35.0); MEAN CORPUSCULAR VOLUME 86.2 fL (80-100); MONOCYTES PERCENT AUTO 5.7 % (2-8); NEUTROPHILS PERCENT AUTO 65.4 % (42.2-75.2); PLATELET COUNT,PLT 326 10^3/uL (150-450); RED BLOOD CELL COUNT 4.77 10^6/uL (4.2-5.4); WHITE BLOOD CELL COUNT,WBC 11.3 10^3/uL (5.0-10.0)
[2024-09-08 16:51] LABS: ANION GAP 12.3 mEq/L (7-13); BLOOD UREA NITROGEN,BUN 10 mg/dL (7-18); CALCIUM 9.6 mg/dL (8.5-10.1); CARBON DIOXIDE,CO2 28 mmol/L (21-32); CHLORIDE,CL 108 mmol/L (98-107); EST CRCL DRUG DOSING (CG) 63.25 mL/min; GLUCOSE RANDOM 139 mg/dL (70-99); POTASSIUM,K 4.3 mmol/L (3.5-5.1); SODIUM,NA 144 mmol/L (136-145)
[2024-09-08 16:54] LABS: ESTIMATED GFR 70 mL/min (>=60)
== END 2024-09-08 17:00 | disposition home or self-care (01) ==
LOC: DL.ED 15:46
DX: R07.2 Precordial pain (principal); Z88.0 Allergy status to penicillin; Z88.8 Allergy status to other drugs, medicaments and biological substances; Z88.1 Allergy status to other antibiotic agents; Z91.040 Latex allergy status; Z88.2 Allergy status to sulfonamides; Z79.51 Long term (current) use of inhaled steroids; Z79.899 Other long term (current) drug therapy; Z86.16 Personal history of COVID-19
CPT/HCPCS: 36415; 80048; 84484; 85025; 93005; 99285

== ENCOUNTER 2024-11-22 14:31 | Emergency (ER) | payer MEDICAID ==
[2024-11-22 14:50] VITALS: BP 138/70; PULSE 78
[2024-11-22] MEDS: Dexamethasone 4 MG/ML SDV IM ONE (14:59)
== END 2024-11-22 15:11 | disposition home or self-care (01) ==
LOC: DL.ED 14:31
DX: M54.41 Lumbago with sciatica, right side (principal); E66.9 Obesity, unspecified; M19.90 Unspecified osteoarthritis, unspecified site; Z88.0 Allergy status to penicillin; Z88.8 Allergy status to other drugs, medicaments and biological substances; Z88.1 Allergy status to other antibiotic agents; Z88.2 Allergy status to sulfonamides; Z88.6 Allergy status to analgesic agent; Z91.040 Latex allergy status; Z79.899 Other long term (current) drug therapy; Z86.16 Personal history of COVID-19; Z90.710 Acquired absence of both cervix and uterus; Z90.49 Acquired absence of other specified parts of digestive tract
CPT/HCPCS: 96372; 99283; J1100